=== PATIENT | female | born 1955 | race Caucasian/White ===

== ENCOUNTER 2017-02-09 09:34 | Emergency (ER) | payer BC ==
[2017-02-09 09:49] VITALS: TEMP 36.7; Ht 154.9 cm
[2017-02-09] MEDS ORDERED: ASPIRIN 324 MG CHEW PO STA (10:04)
--- NOTE | 2017-02-09 10:19 | EMERGENCY ROOM VISIT NOTE ---
History Report prepared by Hilary: Elvis Reyez Under the Supervision of: Dr. Marky Licea M.D. First contact with patient: 09:55 Chief Complaint: CHEST PAIN Stated Complaint: CHEST PAIN History of Present Illness The patient is a 61 year old female who presents to the Emergency Room with complaints of intermittent chest pain that started a few days ago. She says she currently has a bit of pain. The patient says nothing makes the pain better or worse. When the pain gets really bad, she gets short of breath. She currently does not feel short of breath. Per the patient's daughter, when the patient's pain first hit, the patient had trouble with her vision. The patient says that she had left arm pain a few nights ago, but she thinks it was from lying down wrong. Her chest pain does wake up her in the middle of the night. She denies any bowel or bladder issues, headaches, weakness, or loss of consciousness. She has been taking Tums and Aspirin for her chest pain. The patient has not had any recent travels. She is not on any medications, and her only chronic issue is hyperlipidemia. She has a history of blood clots in her legs as a teenager. She has never had a stress test. The patient has a family history of heart disease. She has a personal history of scarlet fever. The patient is a smoker, but is trying to quit currently. Source of History: patient, family Onset: A few days ago Position: chest (pain) Symptom Intensity: wakes her up at night Timing: intermittent Associated Symptoms: + SOB, No LOC, No headache, No urinary symptoms, No weakness Note: Associated symptoms: One episode of left arm pain. Denies bowel issues. Review of Systems See HPI for pertinent positives & negatives. A total of 10 systems reviewed and were otherwise negative. Past Medical & Surgical Medical Problems: (1) Blood clot leg (2) Hyperlipemia (3) Scarlet fever Surgical Problems: (1) H/O ankle fusion Family History FHx: heart disease Social History Smoking Status: Current Every Day Smoker Marital Status: Housing Status: lives with family Occupation Status: employed Current/Historical Medications Scheduled Omeprazole (Omeprazole), 1 TAB PO DIRECTED Allergies Coded Allergies: ALLERGY2 (Verified Allergy, Unknown, 11/29/03) Penicillins (Unverified Allergy, Unknown, UNKNOWN, 02/09/17) Uncoded Allergies: "JONAS" (Allergy, Mild, TOGUE SWELLING, 03/07/06) Physical Exam Vital Signs Date Time Temp Pulse Resp B/P Pulse Ox O2 Delivery O2 Flow Rate FiO2 02/09/17 15:41 64 18 99/57 98 02/09/17 13:19 70 18 91/65 98 Room Air 02/09/17 12:45 72 02/09/17 12:04 70 18 106/73 98 Room Air 02/09/17 11:18 77 18 96/63 98 Room Air 02/09/17 10:35 79 18 96/71 96 Room Air 02/09/17 10:27 90 112/60 95 Room Air 02/09/17 10:25 95 Room Air 02/09/17 09:49 36.7 86 20 121/76 100 Room Air Physical Exam GENERAL: Patient is happy, smiling, and in minimal distress. HEENT: No acute trauma, normocephalic atraumatic, mucous membranes moist, no nasal congestion, no scleral icterus. NECK: No stridor, no adenopathy, no meningismus, trachea is midline. LUNGS: No dyspnea. Clear to auscultation and equal bilaterally. No wheeze, no rhonchi. HEART: Regular rate and rhythm. No murmurs, rubs, gallops appreciated. ABDOMEN: Soft, nontender, bowel sounds positive, no masses appreciated, no peritonitis. BACK: No midline tenderness, no CVA tenderness EXTREMITIES: Normal motion all extremities, no cyanosis, no edema. NEUROLOGIC: Alert and oriented, no acute motor or sensory deficits, no focal weakness, cranial nerves grossly intact. SKIN: No rash, no jaundice, no diaphoresis. Medical Decision & Procedures ER Provider Diagnostic Interpretation: X ray results are stated below per my interpretation and the radiologist's interpretation. CHEST ONE VIEW PORTABLE CLINICAL HISTORY: Chest Pain dyspnea COMPARISON STUDY: 03/07/2006 FINDINGS: The bones soft tissues and hemidiaphragms are normal. The cardiomediastinal silhouette is normal. The lungs are clear. The pulmonary vasculature is normal. IMPRESSION: Negative chest. Electronically signed by: Nader Segal M.D. 02/09/2017 10:26 AM Dictated Date/Time: 02/09/2017 10:26 AM Laboratory Results 02/09/17 10:10 Red Blood Count 5.15, Mean Corpuscular Volume 89.1, Mean Corpuscular Hemoglobin 29.9, Mean Corpuscular Hemoglobin Concent 33.6, Mean Platelet Volume 8.9, Neutrophils (%) (Auto) 54.9, Lymphocytes (%) (Auto) 35.4, Monocytes (%) (Auto) 7.4, Eosinophils (%) (Auto) 1.7, Basophils (%) (Auto) 0.4, Neutrophils # (Auto) 5.14, Lymphocytes # (Auto) 3.31, Monocytes # (Auto) 0.69, Eosinophils # (Auto) 0.16, Basophils # (Auto) 0.04 02/09/17 10:10 Test 02/09/17 10:10 02/09/17 13:00 White Blood Count 9.36 K/uL (4.8-10.8) Red Blood Count 5.15 M/uL (4.2-5.4) Hemoglobin 15.4 g/dL (12.0-16.0) Hematocrit 45.9 % (37-47) Mean Corpuscular Volume 89.1 fL (80-100) Mean Corpuscular Hemoglobin 29.9 pg (25-34) Mean Corpuscular Hemoglobin Concent 33.6 g/dl (32-36) Platelet Count 399 K/uL (130-400) Mean Platelet Volume 8.9 fL (7.4-10.4) Neutrophils (%) (Auto) 54.9 % Lymphocytes (%) (Auto) 35.4 % Monocytes (%) (Auto) 7.4 % Eosinophils (%) (Auto) 1.7 % Basophils (%) (Auto) 0.4 % Neutrophils # (Auto) 5.14 K/uL (1.4-6.5) Lymphocytes # (Auto) 3.31 K/uL (1.2-3.4) Monocytes # (Auto) 0.69 K/uL (0.11-0.59) Eosinophils # (Auto) 0.16 K/uL (0-0.5) Basophils # (Auto) 0.04 K/uL (0-0.2) RDW Standard Deviation 45.3 fL (36.4-46.3) RDW Coefficient of Variation 13.8 % (11.5-14.5) Immature Granulocyte % (Auto) 0.2 % Immature Granulocyte # (Auto) 0.02 K/uL (0.00-0.02) D-Dimer 360 ug/L FEU (0-500) Anion Gap 8.0 mmol/L (3-11) Estimated GFR () 69.4 Estimated GFR (Non- 59.9 BUN/Creatinine Ratio 17.2 (10-20) Calcium Level 9.4 mg/dl (8.5-10.1) Total Creatine Kinase 77 U/L (26-192) Creatine Kinase MB 0.5 ng/ml (0.5-3.6) Creatine Kinase MB Ratio 0.6 (0-3.0) Troponin I 0.028 ng/ml (0-0.045) Laboratory results as reviewed by me. Medications Administered Medications (Trade) Dose Ordered Sig/Abi Route Start Time Stop Time Status Last Admin Dose Admin Aspirin (Aspirin Chew) 324 mg NOW STAT PO 02/09/17 10:04 02/09/17 10:05 DC 02/09/17 10:22 324 MG Nitroglycerin (Nitrostat Tab) 0.4 mg Q5M PRN SL 02/09/17 10:15 02/09/17 15:59 DC 02/09/17 10:29 0.4 MG Perflutren Lipid Microsphere (Definity) 2 ml ONE ONCE IV 02/09/17 15:05 02/09/17 15:06 DC 02/09/17 15:06 2 ML ECG Indication: chest pain Rate (beats per minute): 77 Rhythm: normal sinus Findings: no ectopy, other (nonspecific ST abnormalities anteriorly without STEMI) ED Course 0955: The patient was evaluated in room B7. A complete history and physical exam was performed. 1004: Ordered Aspirin Chew 324 mg PO. 1015: Ordered Nitrostat Tab 0.4 mg SL PRN. 1045: I reevaluated the patient and he notes that her symptoms are still there but she became hypotensive with the second sublingual nitro, so we will hold off on further nitro. The patient says her symptoms are mild currently. 1137: I reevaluated the patient and she has no further chest pain. 1143: I discussed the patient with Dr. Koch - [facility] [place] - he asked that we do a trop at 1300 and if negative, the patient will get a stress test done. 1205: I reevaluated the patient, and she is feeling good and in no distress. She agrees with the plan. 1410: I reevaluated the patient and she is at cardiopulmonary lab. 1505: Ordered Definity 2 ml IV. 1519: I discussed the patient with Dr. August SAUER cardiology - he says that the cath is essentially normal, and it safe for the patient to go home. 1520: Reevaluated the patient and she will follow up with her coin teller. She agrees to starting anti-acids. Discussed results and discharge instructions: She verbalized understanding and agreement. The patient is ready for discharge. Medical Decision Differential: Cardiac Ischemia (STEMI, NSTEMI, Unstable Angina, etc), Aortic Dissection, Arrhythmia, Pulmonary Embolism, Pneumonia, Pneumothorax, MSK, Infectious, Pericarditis/Myocarditis, Esophageal Rupture, Gastrointestinal, amongst other pathologies entertained. 61 yr old female arrives with complaint of chest pressure. She has risk factors of age, smoking and brother with AK in past. She does not see physician regularly so unclear if DLP or HTN. Atypical symptoms with symptoms this morning though more severe symptoms were in episodes a few days ago. Trop wnl x 2, EKG without acute ischemia. Stress testing done without any inducible ischemia. Discussed with cards and outpatient follow up planned. Will do Prilosec as outpatient. Discussed symptoms requiring RTED. Dimer negative thus I feel not PE. No evidence dissection. Consults Time Called: 1140 Consulting Physician: Dr. August SAUER cardiology Returned Call: 1146 I discussed the patient with Dr. August SAUER cardiology - he asked that we do a trop at 1300 and if negative, he will get a stress test done. Additional Consults: Time Called: -- Consulted Physician: Dr. August SAUER cardiology Returned Call: [phone] Additional Comments: I discussed the patient with Dr. August SAUER cardiology - he says that the cath is essentially normal, and it safe for the patient to go home. Impression Primary Impression: Substernal precordial chest pain Scribe Attestation The scribe's documentation has been prepared under my direction and personally reviewed by me in its entirety. I confirm that the note above accurately reflects all work, treatment, procedures, and medical decision making performed by me. Departure Information Dispostion Home / Self-Care Prescriptions Omeprazole (OMEPRAZOLE) 20 Mg Tab 1 TAB PO DIRECTED, #45 TAB 3 Refills Take one tab twice daily for a week and then once daily. Prov: Marky Licea M.D. 02/09/17 Referrals Stanton Narayan M.D. (PCP) Tray Galvez M.D. Patient Instructions ED Chest Pain Atypical Unkn Cause, My [facility] Additional Instructions Please follow up with one of the Product Development Ecologist in the next few weeks for repeat evaluation.
[2017-02-09] MEDS: NITROGLYCERIN 0.4 MG SL PER TAB CHARGE SL PRN ×2 (10:23→10:29)
--- NOTE | 2017-02-09 10:28 | DIAGNOSTIC IMAGING REPORT ---
CHEST ONE VIEW PORTABLE CLINICAL HISTORY: Chest Pain dyspnea COMPARISON STUDY: 03/07/2006 FINDINGS: The bones soft tissues and hemidiaphragms are normal. The cardiomediastinal silhouette is normal. The lungs are clear. The pulmonary vasculature is normal. IMPRESSION: Negative chest. Electronically signed by: Nader Segal M.D. 02/09/2017 10:26 AM Dictated Date/Time: 02/09/2017 10:26 AM
[2017-02-09 10:30] LABS: BASO % 0.4 %; BASO ABS # 0.04 K/uL (0-0.2); COMPLETE YES; EOS % 1.7 %; HEMATOCRIT 45.9 % (37-47); IG% 0.2 %; LYMPH % 35.4 %; LYMPH ABS # 3.31 K/uL (1.2-3.4); MEAN CELL VOLUME 89.1 fL (80-100); MEAN CORPUSCULAR HEMOGLOBIN 29.9 pg (25-34); MEAN CORPUSCULAR HGB CONC 33.6 g/dl (32-36); MEAN PLATELET VOLUME 8.9 fL (7.4-10.4); MONO % 7.4 %; NEUT % 54.9 %; PLATELET COUNT 399 K/uL (130-400); RED BLOOD COUNT 5.15 M/uL (4.2-5.4); WHITE BLOOD COUNT 9.36 K/uL (4.8-10.8)
[2017-02-09 10:53] LABS: BLOOD UREA NITROGEN 17 mg/dl (7-18); BUN/CREATININE RATIO 17.2 (10-20); CALCIUM 9.4 mg/dl (8.5-10.1); CARBON DIOXIDE 26 mmol/L (21-32); CHLORIDE 107 mmol/L (98-107); GLUCOSE 92 mg/dl (70-99); POTASSIUM 3.9 mmol/L (3.5-5.1); SODIUM 141 mmol/L (136-145)
[2017-02-09 10:58] LABS: CKMB/CK RATIO 0.6 (0-3.0)
[2017-02-09] MEDS ORDERED: DOBUTamine HCL 12.5 MG/ML 20 ML VIAL ONE (14:07)
[2017-02-09] MEDS ORDERED: METOPROLOL TARTRATE 1 MG/ML VIAL ONE (14:07)
[2017-02-09] MEDS ORDERED: ATROPINE SULFATE 0.1 MG/ML 5ML SYR ONE (14:07)
[2017-02-09] MEDS ORDERED: PERFLUTREN LIPID MICROSPHERE (DEFINITY) IV ONE (15:05)
[2017-02-09] MEDS ORDERED: OMEP20TA PO (15:30)
[2017-02-09 15:41] VITALS: BP 99/57; PULSE 64; O2SAT 98
--- NOTE | 2017-02-09 16:25 | DOBUTAMINE ECHO ---
*NOTICE TO RECEIVING [employer] This information is strictly Confidential and protected under [place] law. [place] law prohibits you from making any further disclosure of this information unless further disclosure is expressly permitted by the written consent of the person to whom it pertains or is authorized by law. A general authorization for the release of medical or other information is not sufficient for this purpose. Hospital accepts no responsibility if the information is made available to any other person, INCLUDING THE PATIENT. Interpretation Summary * Name: CASSIE THOMAS Study Date: 02/09/2017 01:43 PM BP: 109/61 mmHg * Patient Location: ED HR: 70 * : 1955 (M/d/yyyy) Gender: Female Height: 61 in * Age: 61 yrs Ethnicity: [place] Weight: 133 lb * Ordering Physician: Marky Licea * Referring Physician: Self, Referred * Performed By: Sonu Delgado RCS * * Reason For Study: Chest Pain * BSA: 1.6 m2 * -- Conclusions -- * Stress Echo: * 1. No inducible ischemic changes visualized on Dobutamine stress echo images at 94% MPHR. * 2. Abnormal dobutamine ECG with 1 mm horizontal/downsloping ST depression occurring 10 minutes into recovery. * 3. No arrhythmia. * 4. No chest pain reported with dobutamine infusion. There was reproducible chest discomfort induced with palpation/echo probe. * 5. Technically difficult study, enhanced with IV Definity. * 6. Poor to fair image quality. Suggest other imaging modalities for ischemic evaluation in the future, if appropriate. * Echo: * 1. Normal left ventricular size and systolic function. EF 55-60%. No regional wall motion abnormalities. No left ventricular hypertrophy. No significant diastolic dysfunction. * 2. Sclerotic aortic valve without significant stenosis. * 3. Technically difficult study. Procedure Details * DOBUTAMINE ECHO, CPT#99570 * ECHO COLOR FLOW, CPT #[id number] * ECHO DOPPLER, CPT #[id number] * A contrast injection of Definity was performed to improve assessment of LV function. * Contrast was injected into an intravenous site in the right arm. * One vial of Definity ultrasound contrast was diluted in normal saline to a total volume of 10 ml. A total of '8' ml of solution was administered during imaging. * Lot # [id number] of Definity utilized for procedure. * Expiration date . * The attending nurse who injected the contrast agent was YANDY Hurst. Left Ventricle * The left ventricle is normal in size. * There is normal left ventricular wall thickness. * Ejection Fraction = 55-60%. * Left ventricular systolic function is normal. * Resting wall motion: Normal. Stress wall motion: Appropriate increase in Left ventricular systolic function and decrease in cavity size. No stress induced segmental wall motion abnormalities. * The left ventricular ejection fraction increases normally with stress. The left ventricular end-systolic cavity size reduces post-stress (normal response). The left ventricular wall motion with stress is normal. Right Ventricle * The right ventricle is normal in size and function. * The right ventricular systolic function is normal as assessed by tricuspid annular plane systolic excursion (TAPSE) (normal >1.5 cm). Atria * The left atrial size is normal. * Right atrial size is normal. Mitral Valve * The mitral valve is grossly normal. * There is no mitral valve stenosis. * There is trace mitral regurgitation. Tricuspid Valve * The tricuspid valve is not well visualized, but is grossly normal. * There is no tricuspid stenosis. * Significant tricuspid regurgitation is absent. Aortic Valve * The aortic valve is trileaflet. * Aortic valve sclerosis mild, without significant aortic valvular stenosis. * No hemodynamically significant valvular aortic stenosis. * No aortic regurgitation is present. Pulmonic Valve * The pulmonary valve is inadequately visualized, but the Doppler data is adequate for interpretation. * Mild pulmonic valvular regurgitation. Great Vessels * The aortic root is normal size. * Ascending aorta of normal dimension * Normal pulmonary venous flow pattern. Pericardium * There is no pericardial effusion. Stress Parameters * NSR at 70 bpm. * 1 mm horizontal/downsloping ST depression in leads II, III, aVF, that occurred 10 minutes into recovery and returned to baseline by 15 minutes into recovery. * The stress portion of this study was personally supervised by the undersigned interpreting physician. * Rest heart rate was '70' BPM. * Rest blood pressure was '109/61' * Maximum heart rate achieved was 148 bpm. * Maximum heart rate was 94 % of maximum age-predicted heart rate. * Maximum blood pressure was '144/90' * Maximum Dobutamine infusion rate was '40' mcg/kg/min. * Dobutamine infusion was terminated due to achieving target heart rate * A total of 10 mg of IV Metoprolol was administered to reverse Dobutamine-induced tachycardia. MMode 2D Measurements and Calculations IVSd 0.95 cm IVSs 1.4 cm LVIDd 4.6 cm LVIDs 3.3 cm LVPWd 0.92 cm LVPWs 1.4 cm IVS/LVPW 1.0 FS 28.9 % EDV(Teich) 98.1 ml ESV(Teich) 43.5 ml EF(Teich) 55.7 % EDV(cubed) 98.3 ml ESV(cubed) 35.3 ml EF(cubed) 64.1 % % IVS thick 42.1 % % LVPW thick 47.1 % LV mass(C)d 145.8 grams LV mass(C)dI 91.8 grams/m\S\2 LV mass(C)s 149.5 grams LV mass(C)sI 94.1 grams/m\S\2 CO(Teich) 4.0 l/min CI(Teich) 2.5 l/min/m\S\2 SV(Teich) 54.6 ml SI(Teich) 34.4 ml/m\S\2 CO(cubed) 4.6 l/min CI(cubed) 2.9 l/min/m\S\2 SV(cubed) 63.0 ml SI(cubed) 39.7 ml/m\S\2 Ao root diam 3.2 cm Ao root area 8.2 cm\S\2 ACS 1.6 cm LA dimension 3.2 cm asc Aorta Diam 2.4 cm LA/Ao 1.0 LVAd ap4 24.7 cm\S\2 LVLd ap4 7.9 cm EDV(MOD-sp4) 65.0 ml LVAs ap4 13.0 cm\S\2 LVLs ap4 5.6 cm ESV(MOD-sp4) 26.0 ml EF(MOD-sp4) 60.0 % LVAd ap2 23.3 cm\S\2 LVLd ap2 7.2 cm EDV(MOD-sp2) 63.0 ml LVAs ap2 12.1 cm\S\2 LVLs ap2 5.3 cm ESV(MOD-sp2) 25.0 ml EF(MOD-sp2) 60.3 % CO(MOD-sp4) 2.8 l/min CI(MOD-sp4) 1.8 l/min/m\S\2 SV(MOD-sp4) 39.0 ml SI(MOD-sp4) 24.6 ml/m\S\2 CO(MOD-sp2) 2.8 l/min CI(MOD-sp2) 1.7 l/min/m\S\2 SV(MOD-sp2) 38.0 ml SI(MOD-sp2) 23.9 ml/m\S\2 Doppler Measurements and Calculations MV E max rigo 76.0 cm/sec MV A max rigo 64.4 cm/sec MV E/A 1.2 MV P1/2t max rigo 93.6 cm/sec MV P1/2t 69.5 msec MVA(P1/2t) 3.2 cm\S\2 MV dec slope 394.5 cm/sec\S\2 MV dec time 0.24 sec Ao V2 max 106.3 cm/sec Ao max PG 4.5 mmHg Ao max PG (full) 1.8 mmHg LV V1 max PG 2.7 mmHg LV V1 max 81.9 cm/sec TV E max rigo 48.0 cm/sec PA V2 max 87.5 cm/sec PA max PG 3.1 mmHg PI max rigo 160.1 cm/sec PI max PG 10.3 mmHg PI dec slope 124.8 cm/sec\S\2 PI P1/2t 375.7 msec
[2017-02-16] MEDS ORDERED: ASPEC81 PO (11:27)
== END 2017-02-09 15:44 | disposition home or self-care (01) ==
LOC: C.EDB 09:36
DX: R07.2 Precordial pain (principal); Z86.718 Personal history of other venous thrombosis and embolism; E78.5 Hyperlipidemia, unspecified; Z86.19 Personal history of other infectious and parasitic diseases; Z82.49 Family history of ischemic heart disease and other diseases of the circulatory system; F17.210 Nicotine dependence, cigarettes, uncomplicated

== ENCOUNTER 2017-02-13 23:39 | Inpatient (IN) | payer BC ==
[~2017-02-13] VITALS: Ht 154.9 cm; Wt 64.5 kg
[~2017-02-13 23:39] MED LIST: OMEP20TA PO
[2017-02-14] VITALS (9 sets, daily range): BP systolic 90–125; BP diastolic 49–86; PULSE 68–90; TEMP 36.4–37; O2SAT 97–99; Ht 154.9 cm; Wt 64.5 kg
--- NOTE | 2017-02-14 00:07 | EMERGENCY ROOM VISIT NOTE ---
History Report prepared by Hilary: Elizabeth Garvey Under the Supervision of: Dr. Shayla Ruano D.O. First contact with patient: 23:42 Chief Complaint: CHEST PAIN Stated Complaint: CHEST PAIN History of Present Illness The patient is a 61 year old female who presents to the Emergency Room with complaints of constant chest pain beginning 1 hour ago. The patient states that she was laying in bed watching TV when her chest started to hurt and she began having left arm pain. She notes that she took 2 Aspirin before she came in tonight. The patient reports that 4 days ago she was seen here for similar pain with diaphoresis and was given 2 nitroglycerin that lowered her blood pressure and her pain and was told to follow up with a technical document writer for further testing. She states that she is a smoker, her brother had a heart attack in his late 50's , and she has high cholesterol. Today the patient complains of jaw pain, nausea that is now resolved, shortness of breath, and arm pain. The jaw pain and arm pain are new for her. She denies any abdominal pain, leg cramping, leg swelling , and diaphoresis. She notes that she was put on Prilosec after her last visit. Source of History: patient Onset: 1 hour ago Position: chest Timing: constant Associated Symptoms: + SOB, + nausea, No abdominal pain, No diaphoresis Note: Today the patient complains of jaw pain and arm pain. She denies any leg cramping and leg swelling. Review of Systems See HPI for pertinent positives & negatives. A total of 10 systems reviewed and were otherwise negative. Past Medical & Surgical Medical Problems: (1) Blood clot leg (2) Chest pain radiating to arm (3) Hyperlipemia (4) Scarlet fever (5) Unstable angina Surgical Problems: (1) H/O ankle fusion Family History FHx: heart disease Social History Smoking Status: Current Every Day Smoker Marital Status: Housing Status: lives with family Occupation Status: employed Current/Historical Medications Scheduled Omeprazole (Omeprazole), 1 TAB PO DIRECTED Allergies Coded Allergies: Anesthetics, Amide (Verified Allergy, Unknown, "JONAS" TONGUE SWELLS, ) MORE COMMONLY USED THAN ESTERS Anesthetics, Giuliana (Verified Allergy, Unknown, "JONAS" TONGUE SWELLING, ) Penicillins (Verified Allergy, Unknown, UNKNOWN, 02/14/17) Physical Exam Vital Signs Date Time Temp Pulse Resp B/P Pulse Ox O2 Delivery O2 Flow Rate FiO2 02/14/17 01:40 124/79 02/14/17 01:35 87 18 122/85 97 02/14/17 01:30 88 20 112/86 97 Room Air 02/14/17 01:25 124/80 02/14/17 01:24 83 21 97 02/14/17 01:20 125/80 02/14/17 01:16 102/72 02/14/17 01:10 122/75 02/14/17 01:09 100 17 98 02/14/17 01:05 111/62 02/14/17 01:00 97/74 02/14/17 00:55 95/65 02/14/17 00:54 97 21 95 02/14/17 00:49 103 21 93/61 96 02/14/17 00:44 106 16 96 Room Air 02/14/17 00:39 93 18 126/83 98 Room Air 02/14/17 00:34 92 18 99 02/14/17 00:29 93 22 97 Room Air 02/14/17 00:24 99 18 103/72 95 02/14/17 00:19 95 25 96 02/14/17 00:14 95 27 103/74 94 Room Air 02/14/17 00:09 94 18 97 02/14/17 00:06 113/76 02/14/17 00:04 100 Room Air 02/14/17 00:04 92 23 99 02/14/17 00:00 150/83 02/13/17 23:59 91 22 100 02/13/17 23:54 93 20 100 02/13/17 23:51 100 Room Air 02/13/17 23:50 93 02/13/17 23:49 37.6 100 18 156/98 100 Room Air 02/13/17 23:49 91 21 97 02/13/17 23:46 156/98 Physical Exam HEENT: Head - normocephalic and atraumatic Pupils are equal, round, and reactive to light. Extraocular eye muscles are intact, and sclera are anicteric. Nose - moist nasal mucosa without discharge. Mouth - moist buccal mucosa. Oropharynx is nonerythematous and there is no tonsillar exudate or edema noted. Neck: Supple; no JVD, nuchal rigidity, cervical lymphadenopathy, or auscultated bruits. Heart: Regular rate and rhythm. There is a normal S1 and S2 with no murmurs, clicks, or gallops appreciated. Lungs: Clear to auscultation bilaterally with no wheezes, rales, or rhonchi. Abdomen: Soft, completely nontender, nondistended, with good bowel sounds. There are no palpable pulsatile masses or hepatosplenomegaly. There is no guarding, rigidity, or rebound noted. Extremities: No evidence of cyanosis, clubbing, or edema. There are easily palpable peripheral pulses. Skin: warm and dry with good turgor and no rashes. Medical Decision & Procedures ER Provider Diagnostic Interpretation: Radiology results as stated below per my review and the radiologist's interpretation: Chest X-Ray: No cardiomegaly. No obviously pulmonary infiltrate questionable granulomatous changes vs pyelolymphadenopathy. CTA CHEST: Motion degraded. No aortic aneurysm. No evidence of aortic dissection within the limitations of the study. No evidence of large central pulmonary embolism. No pleural effusion. Mild atelectasis. Laboratory Results 02/13/17 23:49 Test 02/13/17 23:49 Anion Gap 7.0 mmol/L (3-11) Est Creatinine Clear Calc Drug Dose 44.7 ml/min Estimated GFR () 61.9 Estimated GFR (Non- 53.4 BUN/Creatinine Ratio 19.7 (10-20) Calcium Level 9.0 mg/dl (8.5-10.1) Total Bilirubin 0.2 mg/dl (0.2-1) Direct Bilirubin < 0.1 mg/dl (0-0.2) Aspartate Amino Transf (AST/SGOT) 18 U/L (15-37) Alanine Aminotransferase (ALT/SGPT) 33 U/L (12-78) Alkaline Phosphatase 107 U/L (45-117) Pro-B-Type Natriuretic Peptide 127 pg/ml (0-900) Total Protein 7.9 gm/dl (6.4-8.2) Albumin 3.8 gm/dl (3.4-5.0) Lipase 307 U/L (73-393) Laboratory results per my review. Medications Administered Medications (Trade) Dose Ordered Sig/Abi Route Start Time Stop Time Status Last Admin Dose Admin Nitroglycerin (Nitrostat Tab) 0.4 mg STK-MED ONCE .ROUTE 02/14/17 00:08 02/14/17 00:09 DC 02/14/17 00:03 0.4 MG Procedure 0008: Nitroglycerin 0.4mg PO. ECG Indication: chest pain Rate (beats per minute): 92 Rhythm: normal sinus Findings: ST depression (V5, V6) Comparison ECG Date: 02/09/2017 Change: EKG #2: 110 Sinus Tachycardia, no ischemia, no ectopy. ED Course 2342: Past medical records reviewed. The patient was evaluated in room B8. A complete history and physical exam was performed. A twelve-lead EKG was obtained. An IV lock was initiated and labs were drawn as above. The patient had a portable chest x-ray. She is declining anything more for pain as she is quite sensitive to pain medications. 0008: Nitroglycerin 0.4mg PO. 0023: I reevaluated the patient. The nitroglycerin took the pain out of her neck , shoulder, and chest. She still has the pain in her forearm after 2 nitroglycerin. 0042: The patient is having more chest pain and got the third nitroglycerin. A repeat EKG was done at this time. 0121: I reevaluated the patient. Her pain is severe and she doesn't want anything for pain. I considered the possibility of aortic dissection and the patient went for CT scan of the chest. This was unremarkable. 0141: Discussed the patient's case with the [facility] hospitalist. The patient will be evaluated for further management. 0147: Upon reevaluation, I discussed findings and results with the patient. She verbalized agreement of the treatment plan. I spoke with Dr. Goddard of the [facility] Hospitalist Service. The patient will be evaluated for further management and care. Medical Decision The patient is a 61 year old female who presents to the ED with chest pain. Differential diagnosis includes STEMI, cardiac ischemia, pleurisy, GERD, aortic dissection. LABS: Normal White Count Stable H&H BUN 22 Creatinine 1.1 Glucose 156 Normal LFTs Negative Cardiac Enzymes BNP 127 Lipase 207 Normal Coags This is a 61-year-old female patient with a recent history of intermittent episodes of chest discomfort for which she has been evaluated here at the hospital and by cardiology. Tonight, the patient developed severe left-sided chest pain that seemed to extend up into the left side of her jaw, left shoulder , left arm and left forearm. I remain concerned about the possibility of coronary artery disease as the patient has risk factors including smoking, hypercholesterolemia, and a strong family history of heart disease. The patient has undergone a dobutamine stress echo recently which was negative according to the family. I've discussed the case with the [facility]ist and they will evaluate for further management. Consults Time Called: 101 Consulting Physician: Dr. Goddard Returned Call: [phone] Discussed the patient's case. The patient will be evaluated for further management. Impression Primary Impression: Left sided chest pain Scribe Attestation The scribe's documentation has been prepared under my direction and personally reviewed by me in its entirety. I confirm that the note above accurately reflects all work, treatment, procedures, and medical decision making performed by me. Departure Information Dispostion Being Evaluated By Hospitalist Referrals Stanton Narayan M.D. (PCP) Patient Instructions My [facility]
[2017-02-14] MEDS ORDERED: NITROGLYCERIN 0.4 MG SL PER TAB CHARGE ONE (00:08)
[2017-02-14 00:10] LABS: HEMATOCRIT 43.9 % (37-47); MEAN CELL VOLUME 89.2 fL (80-100); MEAN CORPUSCULAR HEMOGLOBIN 29.7 pg (25-34); MEAN CORPUSCULAR HGB CONC 33.3 g/dl (32-36); MEAN PLATELET VOLUME 9.1 fL (7.4-10.4); PLATELET COUNT 387 K/uL (130-400); RED BLOOD COUNT 4.92 M/uL (4.2-5.4); WHITE BLOOD COUNT 9.98 K/uL (4.8-10.8)
[2017-02-14 00:30] LABS: ALT/SGPT 33 U/L (12-78); AST/SGOT 18 U/L (15-37); BLOOD UREA NITROGEN 22 mg/dl (7-18); BUN/CREATININE RATIO 19.7 (10-20); CARBON DIOXIDE 27 mmol/L (21-32); CHLORIDE 110 mmol/L (98-107); GLUCOSE 156 mg/dl (70-99); POTASSIUM 3.5 mmol/L (3.5-5.1); SODIUM 144 mmol/L (136-145)
[2017-02-14 00:32] LABS: INR 0.9 (0.9-1.1); PROTHROMBIN TIME (PATIENT) 9.7 SECONDS (9.0-12.0)
[2017-02-14 00:35] LABS: ALKALINE PHOSPHATASE 107 U/L (45-117); CKMB/CK RATIO 1.1 (0-3.0)
[2017-02-14] MEDS ORDERED: ZOLPIDEM TARTRATE 5 MG TAB PO PRN (01:45)
[2017-02-14] MEDS ORDERED: ACETAMINOPHEN 325 MG TAB PO PRN (01:45)
[2017-02-14] MEDS ORDERED: NITROGLYCERIN 0.4 MG SL PER TAB CHARGE SL PRN (01:45)
[2017-02-14] MEDS ORDERED: OPTIRAY 320 IV PRN (01:45)
[2017-02-14] MEDS ORDERED: LEVALBUTEROL/IPRATROPIUM NEB INH PRN (02:00)
[2017-02-14] MEDS ORDERED: MoRPHine SULFATE 4 MG/ML 1 ML CARP\\VIAL IV PRN (02:00)
[2017-02-14] MEDS ORDERED: LEVALBUTEROL 1.25MG/0.5ML NEB INH PRN (02:00)
[2017-02-14] MEDS ORDERED: MoRPHine SULFATE 2 MG/ML CARP IV PRN (02:00)
[2017-02-14] MEDS ORDERED: ONDANSETRON INJ 2 MG/ML 2 ML VIAL IV PRN (02:00)
[2017-02-14] MEDS ORDERED: IPRATROPIUM BROMIDE NEB SOLN 0.02% 2.5 ML VIAL INH PRN (02:00)
[2017-02-14] MEDS ORDERED: ACETAMINOPHEN IV 100 ML IV PRN (02:00)
[2017-02-14] MEDS ORDERED: NITROGLYCERIN OINT 2% 1GM PACKET ONE (02:03)
[2017-02-14 02:40] LABS: CKMB/CK RATIO 1.2 (0-3.0)
[2017-02-14] MEDS: NSS + 20MEQ KCL 1000ML 1,000 ML IV SCH ×2 (03:46→14:20)
--- NOTE | 2017-02-14 05:25 | History and Physical ---
History & Physical Date & Time of Service: Feb 14, 2017 at 05:14 Chief Complaint: Chest Pain Radiating To Arm, Unstable Angina Primary Care Physician: Stanton Narayan M.D. History of Present Illness Source: patient, family, spouse The patient is a 61-year-old female who developed precordial chest pain, left arm and jaw pain 1 hour prior to arrival while she is lying in bed watching TV. She took 2 aspirin, and then came to emergency department for assessment. She had been to the emergency department 4 days ago for chest pain at that time , but the left arm and jaw pain is something new to this event today. She reports having attacks of chest discomfort almost daily for the past 2-3 weeks. She cannot associate any change in activity or any other causal relationship. Her risk factors include that of being a smoker, has hypercholesterolemia, and a brother who had a heart attack in his late 50s. Past Medical/Surgical History Medical Problems: (1) Blood clot leg Status: Resolved (2) Hyperlipemia Status: Chronic (3) Scarlet fever Status: Resolved Surgical Problems: (1) H/O ankle fusion Status: Resolved Family History FHx: heart disease Social History Smoking Status: Current Every Day Smoker Smokeless Tobacco Use: No Alcohol Use: none Drug Use: none Marital Status: Housing status: lives with family Occupational Status: employed Multi-Drug Resistant Organisms History of MDRO: No Allergies Coded Allergies: ALLERGY2 (Verified Allergy, Unknown, 11/29/03) Penicillins (Unverified Allergy, Unknown, UNKNOWN, 02/14/17) Uncoded Allergies: "JONAS" (Allergy, Mild, TOGUE SWELLING, 03/07/06) Home Medications Scheduled Omeprazole (Omeprazole), 1 TAB PO DIRECTED Review of Systems The patient denies palpitations, lower extremity swelling, vision change, hearing change, sore throat, fevers, chills, sweats, weight change, fatigue, nausea, vomiting, abdominal pain, pelvic pain, blood in urine or stool, dysuria , urinary frequency or urgency, lightheadedness, dizziness, headache, memory loss, rash, abnormal bruising or bleeding, imbalance, focal or generalized weakness, numbness or tingling in legs, arthralgias or myalgias, back or neck pain, night sweats, or allergy symptoms. The review of systems is otherwise negative other than for that already noted above, and at least 10 systems have been reviewed. Physical Exam Vital Signs Date Time Temp Pulse Resp B/P Pulse Ox O2 Delivery O2 Flow Rate FiO2 02/14/17 04:00 Room Air 02/14/17 03:09 36.4 70 123/78 99 Room Air 02/14/17 02:33 79 18 136/96 98 02/14/17 02:10 78 18 136/74 98 Room Air 02/14/17 02:09 132/81 02/14/17 02:05 94 02/14/17 02:00 118/84 02/14/17 01:40 124/79 02/14/17 01:35 87 18 122/85 97 02/14/17 01:30 88 20 112/86 97 Room Air 02/14/17 01:25 124/80 02/14/17 01:24 83 21 97 02/14/17 01:20 125/80 02/14/17 01:16 102/72 02/14/17 01:10 122/75 02/14/17 01:09 100 17 98 02/14/17 01:05 111/62 02/14/17 01:00 97/74 02/14/17 00:55 95/65 02/14/17 00:54 97 21 95 02/14/17 00:49 103 21 93/61 96 02/14/17 00:44 106 16 96 Room Air 02/14/17 00:39 93 18 126/83 98 Room Air 02/14/17 00:34 92 18 99 02/14/17 00:29 93 22 97 Room Air 02/14/17 00:24 99 18 103/72 95 02/14/17 00:19 95 25 96 02/14/17 00:14 95 27 103/74 94 Room Air 02/14/17 00:09 94 18 97 02/14/17 00:06 113/76 02/14/17 00:04 100 Room Air 02/14/17 00:04 92 23 99 02/14/17 00:00 150/83 02/13/17 23:59 91 22 100 02/13/17 23:54 93 20 100 02/13/17 23:51 100 Room Air 02/13/17 23:50 93 02/13/17 23:49 37.6 100 18 156/98 100 Room Air 02/13/17 23:49 91 21 97 02/13/17 23:46 156/98 The patient is awake, well-developed and adequately nourished, alert and oriented 3, normocephalic and atraumatic, lying in bed and in no acute distress. HEENT--PERRL, EOMI, mucous membranes and oropharynx Neck--supple, no JVD or bruits, thyroid normal, trachea midline, no adenopathy. Heart--normal S1 and S2, no extra beats, no murmurs, rubs or gallops. Lungs-- no respiratory distress, no accessory muscle use. Abdomen--normal bowel sounds and soft, nontender and nondistended, no hernias or masses, no organomegaly. Extremities--no cyanosis, clubbing or edema. There are good distal pulses b/l. Dermatologic--normal skin turgor, normal color, warm and dry, no abnormal lymph nodes, no rash. Neurologic--cranial nerves II through XII grossly intact, motor and sensory examination normal. Rheumatologic--normal range of motion, nontender, muscles and joints. Psychiatric--normal affect. Diagnostics Laboratory Results Results Past 24 Hours Test 02/13/17 23:49 02/14/17 02:12 02/14/17 04:44 Range/Units White Blood Count 9.98 4.8-10.8 K/uL Red Blood Count 4.92 4.2-5.4 M/uL Hemoglobin 14.6 12.0-16.0 g/dL Hematocrit 43.9 37-47 % Mean Corpuscular Volume 89.2 80-100 fL Mean Corpuscular Hemoglobin 29.7 25-34 pg Mean Corpuscular Hemoglobin Concent 33.3 32-36 g/dl RDW Standard Deviation 45.0 36.4-46.3 fL RDW Coefficient of Variation 13.8 11.5-14.5 % Platelet Count 387 130-400 K/uL Mean Platelet Volume 9.1 7.4-10.4 fL Prothrombin Time 9.7 9.0-12.0 SECONDS Prothromb Time International Ratio 0.9 0.9-1.1 Activated Partial Thromboplast Time 26.1 21.0-31.0 SECONDS Partial Thromboplastin Ratio 1.0 Sodium Level 144 136-145 mmol/L Potassium Level 3.5 3.5-5.1 mmol/L Chloride Level 110 98-107 mmol/L Carbon Dioxide Level 27 21-32 mmol/L Anion Gap 7.0 3-11 mmol/L Blood Urea Nitrogen 22 7-18 mg/dl Creatinine 1.10 0.60-1.20 mg/dl Est Creatinine Clear Calc Drug Dose 44.7 ml/min Estimated GFR () 61.9 Estimated GFR (Non- 53.4 BUN/Creatinine Ratio 19.7 10-20 Random Glucose 156 70-99 mg/dl Calcium Level 9.0 8.5-10.1 mg/dl Total Bilirubin 0.2 0.2-1 mg/dl Direct Bilirubin < 0.1 0-0.2 mg/dl Aspartate Amino Transf (AST/SGOT) 18 15-37 U/L Alanine Aminotransferase (ALT/SGPT) 33 12-78 U/L Alkaline Phosphatase 107 45-117 U/L Total Creatine Kinase 80 66 26-192 U/L Creatine Kinase MB 0.9 0.8 0.5-3.6 ng/ml Creatine Kinase MB Ratio 1.1 1.2 0-3.0 Troponin I < 0.015 0.042 0-0.045 ng/ml Pro-B-Type Natriuretic Peptide 127 0-900 pg/ml Total Protein 7.9 6.4-8.2 gm/dl Albumin 3.8 3.4-5.0 gm/dl Lipase 307 73-393 U/L Diagnostic Radiology Chest x-ray is normal. CT dissection study is negative. EKG EKG #1 shows normal sinus rhythm at 92 bpm, with subtle ST depressions in lateral chest leads. EKG #2 shows sinus tachycardia at 110 bpm, with resolved ST depressions. Impression Assessment and Plan Unstable angina--patient has a significant number of risk factors as noted. She 's had symptoms of gradually worsened over the past 2-3 weeks. She'll be admitted to the telemetry unit for serial cardiac enzymes, cardiac rhythm monitoring and a 2-D echocardiogram with Dopplers. If enzymes become elevated and or there are EKG changes, the patient will be started on heparin drip. For now she is given aspirin 324 mg by mouth now and 81mg every morning, Nitropaste 1 inch to anterior chest wall every 6 hours, and normal saline with potassium chloride 20 mEq at 100 ML's per hour. Tobacco use disorder--discussed with patient the importance of tobacco cessation as a modifiable risk factor for heart disease. GERD--change omeprazole 20 mg by mouth daily to pantoprazole 40 mg by mouth daily. Hyperglycemia--blood sugar was 156. We'll check a hemoglobin A1c. Level of Care Telemetry Advanced Directives Existing Advance Directive: No Existing Living Will: No Existing Power of Senior Editor: No Resuscitation Status FULL RESUSCITATION VTE Prophylaxis VTE Risk Assessment Done? Y/N: Yes Risk Level: Moderate Given or contraindicated: SCD's
--- NOTE | 2017-02-14 07:42 | DIAGNOSTIC IMAGING REPORT ---
CHEST CTA for AORTIC DISSECTION CT DOSE: 425.10 mGy.cm HISTORY: Atypical chest pain. TECHNIQUE: Multiaxial CT images of the chest were performed both before and after the intravenous administration of contrast to evaluate the aorta. Maximal intensity projection images were also obtained. COMPARISON STUDY: Chest 02/09/2017. FINDINGS: Noncontrast imaging shows no evidence for an intramural hematoma within the thoracic aorta. Normal caliber thoracic aorta with no evidence for dissection. The main pulmonary arteries are patent. No mediastinal or hilar lymphadenopathy. The liver and spleen are unremarkable. No pleural or pericardial effusions. No fractures within the visualized osseous structures. No pneumothorax. No focal lung consolidations. IMPRESSION: No evidence for an aortic dissection. Electronically signed by: Kurtis Renner M.D. 02/14/2017 7:40 AM Dictated Date/Time: 02/14/2017 7:36 AM
[2017-02-14] MEDS ORDERED: PNEUMOCOCCAL POLYSACCHARIDES 25 MCG/0.5 ML VIAL/SYR IM. ONE (08:00)
[2017-02-14] MEDS: NITROGLYCERIN OINT 2% 1GM PACKET EXT SCH ×4 (08:00→20:20)
[2017-02-14] MEDS ORDERED: PNEUMOCOCCAL ADMINISTRATION CHARGE ONE (08:00)
[2017-02-14] MEDS ORDERED: INFLUENZA VIRUS QUAD VACCINE 0.5 ML SYR IM. ONE (08:00)
[2017-02-14] MEDS ORDERED: INFLUENZA ADMINISTRATION CHARGE ONE (08:00)
--- NOTE | 2017-02-14 08:05 | DIAGNOSTIC IMAGING REPORT ---
CHEST ONE VIEW PORTABLE HISTORY: Atypical chest pain. COMPARISON: Chest 02/09/2017. FINDINGS: The lungs are clear. Cardiac silhouette is normal in size. No pleural effusions. No pneumothorax. IMPRESSION: No acute process. Electronically signed by: Kurtis Renner M.D. 02/14/2017 8:03 AM Dictated Date/Time: 02/14/2017 8:02 AM
[2017-02-14] MEDS: PANTOprazole SOD 40 MG TAB PO SCH ×2 (09:27→11:34)
[2017-02-14 10:52] LABS: CKMB/CK RATIO 1.5 (0-3.0)
[2017-02-14] MEDS ORDERED: ASPIRIN 81 MG CHEW PO STA (11:27)
[2017-02-14] MEDS ORDERED: ENOXAPARIN 60 MG/0.6 ML SYR SQ ONE ×2 (11:30)
[2017-02-14 12:09] LABS: BASO % 0.5 %; BASO ABS # 0.05 K/uL (0-0.2); EOS % 1.7 %; HEMATOCRIT 41.1 % (37-47); IG% 0.1 %; LYMPH % 33.9 %; LYMPH ABS # 3.52 K/uL (1.2-3.4); MEAN CELL VOLUME 89.9 fL (80-100); MEAN CORPUSCULAR HEMOGLOBIN 30.2 pg (25-34); MONO % 9.6 %; NEUT % 54.2 %; PLATELET COUNT 349 K/uL (130-400); RED BLOOD COUNT 4.57 M/uL (4.2-5.4); WHITE BLOOD COUNT 10.39 K/uL (4.8-10.8)
[2017-02-14 12:13] LABS: COMPLETE YES; MEAN CORPUSCULAR HGB CONC 33.6 g/dl (32-36)
[2017-02-14] MEDS ORDERED: HEPARIN IV BOLUS 4,000 UNIT in SYRINGE 0 ML IV ONE (12:15)
[2017-02-14 12:18] LABS: INR 0.9 (0.9-1.1)
[2017-02-14] MEDS: HEPARIN 25,000 UNIT/500ML D5W 500 ML IV PRN ×2 (13:21→20:15)
--- NOTE | 2017-02-14 14:10 | Cardiology Consultation ---
Cardiology Consultation Date of Service Feb 14, 2017. Cardiology Consultation CARDIOLOGY CONSULTATION DATE OF CONSULTATION: February 14, 2017 REFERRING PHYSICIAN: Gorge Goddard MD REASON FOR CONSULT: Chest pain HISTORY OF PRESENT ILLNESS: 61-year-old woman with no prior cardiac history who has had intermittently recurring chest discomfort, and equivocal dobutamine stress echo last week ( negative echo but persistent ST depression on ECG), was admitted last evening with chest, left arm, and jaw pain. Initial ECG and troponins were negative, however her third troponin was elevated and there were minor ECG abnormalities. She did have some chest discomfort after admission, this responded well to a single dose of morphine as well as continued nitroglycerin paste. At the time of my evaluation this afternoon, she was comfortable. MEDICATIONS: Omeprazole ALLERGIES: Penicillins, "manohar" PAST MEDICAL HISTORY: Leg DVT Dyslipidemia PAST SURGICAL HISTORY: Ankle fusion SOCIAL HISTORY: Every day smoker. No alcohol. and accompanied by her . FAMILY HISTORY: REVIEW OF SYSTEMS: Per admission HPI and review of systems. PHYSICAL EXAMINATION: No distress. Vitals: Afebrile. BP 125/86, pulse 83 and regular, respirations 16 nonlabored. Skin: No unusual lesions or ecchymosis. HEENT: Unremarkable. Neck: Jugular venous pulse at the clavicle at 90, no carotid bruits. Lungs: Moderately decreased breath sounds without wheezing or crackles. No accessory muscle use. Cardiac: Regular rhythm with normal S1 and S2. No murmur or gallop. Abdomen: Benign. Extremities: Nontender without edema. Intact peripheral pulses. Neurologic: Normal affect, nonfocal DATA: Initial ECG showed sinus rhythm with a minor nonspecific ST depression in the anterolateral leads, this was unchanged compared with earlier in the week. ECG today showed new T-wave flattening with minimal inversion in the anterolateral leads, no change in very minimal ST depression. Chest x-ray was unremarkable. CT of the chest was negative for dissection. Normal CBC, coagulation studies, and electrolytes. BUN 22, creatinine 1.1. Normal transaminases. Normal proBNP. After 2 normal troponins, her third troponin was elevated 0.05. CK was 80 and declined with negative MB. IMPRESSION: 1. Presumed unstable angina/non-STEMI, currently asymptomatic. 2. History of dyslipidemia. 3. Ongoing tobacco smoker. 4. Possible topical anesthetic allergy (allergic to "manohar") 5. Otherwise generally healthy 61-year-old woman. DISCUSSION: Patient with recurring chest discomfort increasing in intensity and frequency, now with elevated troponin and mildly dynamic ECG. We discussed risks/benefits/ alternatives to cardiac catheterization, since she already had a stress study which was equivocal it would be appropriate to proceed with catheterization tomorrow. If she has recurrent symptoms with significant ECG changes and is unresponsive to medical management, could need intervention sooner. Agree with aspirin, nitro paste, anticoagulation (switched from Lovenox to intravenous heparin to allow for more than latitude in timing of catheterization ). Will discuss potential role of loading additional anti-platelet agent with interventional cardiology and add if they suggest pursuing this option. Thank you for this consultation.
[2017-02-14] MEDS ORDERED: TICAGRELOR 90 MG TAB PO ONE (14:45)
--- NOTE | 2017-02-14 17:59 | Hospitalist Progress Note ---
Hospitalist Progress Note Date of Service Feb 14, 2017. Subjective Pt evaluation today including: conversation w/ patient, conversation w/ family , physical exam, chart review, lab review I saw the patient and she did not complain of any chest pain. We had a detailed discussion about tobacco cessation. When I left the nurse called back to say she has never got relief from the chest pain that she presented with. Cardiovascular: + chest pain Medications Medications (Trade) Dose Ordered Sig/Abi Route Start Time Stop Time Status Last Admin Dose Admin Nitroglycerin 0.4 mg 0.4 mg STK-MED ONCE .ROUTE 02/14/17 00:08 02/14/17 00:09 DC 02/14/17 00:03 0.4 MG Potassium Chloride/Sodium Chloride (Nss + 20meq KCl 1000ml) 1,000 ml @ 100 mls/hr Q10H IV 02/14/17 03:30 03/16/17 03:29 02/14/17 14:20 100 MLS/HR Nitroglycerin (Nitroglycerin 2% Oint) 1 inch Q6H EXT 02/14/17 08:00 03/16/17 07:59 02/14/17 15:00 1 INCH Pantoprazole Sodium (Protonix Tab) 40 mg QAM PO 02/14/17 09:00 03/16/17 08:59 02/14/17 11:34 40 MG Ondansetron HCl (Zofran Inj) 4 mg Q6H PRN IV 02/14/17 02:00 03/16/17 01:59 02/14/17 11:45 4 MG Morphine Sulfate (MoRPHine SULFATE INJ) 2 mg Q2H PRN IV 02/14/17 02:00 02/28/17 01:59 02/14/17 11:35 2 MG Nitroglycerin (Nitroglycerin 2% Oint) 1 inch STK-MED ONCE .ROUTE 02/14/17 02:03 02/14/17 02:04 DC 02/14/17 01:59 1 INCH Aspirin (Aspirin Chew) 324 mg NOW STAT PO 02/14/17 11:27 02/14/17 11:32 DC 02/14/17 11:37 324 MG Heparin Sodium/ Dextrose 1 ea 1 ea Q30M N/A 02/14/17 11:47 02/14/17 12:08 DC 02/14/17 11:47 1 EA Heparin Sodium (Porcine) 4000 unit/Syringe 4 ml @ 10 mls/min NOW ONCE IV 02/14/17 12:15 02/14/17 12:16 DC 02/14/17 13:06 10 MLS/MIN Heparin Sodium/ Dextrose (Heparin 25,000 Unit/500ml D5W) 500 ml @ 19 mls/hr Q24H PRN IV 02/14/17 12:15 03/16/17 12:14 02/14/17 13:21 19 MLS/HR Ticagrelor (Brilinta Cap) 180 mg NOW ONCE PO 02/14/17 14:45 02/14/17 14:47 DC 02/14/17 14:59 180 MG Objective Vital Signs Date Time Temp Pulse Resp B/P Pulse Ox O2 Delivery O2 Flow Rate FiO2 02/14/17 16:42 36.6 68 18 101/63 98 Room Air 02/14/17 16:12 Room Air 02/14/17 12:09 36.6 83 16 125/86 98 Room Air 02/14/17 12:00 Room Air 02/14/17 11:47 90 125/83 02/14/17 09:30 78 100/70 02/14/17 08:01 36.4 70 16 90/49 97 Room Air 02/14/17 08:00 Room Air 02/14/17 04:00 Room Air 02/14/17 03:09 36.4 70 123/78 99 Room Air 02/14/17 02:33 79 18 136/96 98 02/14/17 02:10 78 18 136/74 98 Room Air 02/14/17 02:09 132/81 02/14/17 02:05 94 02/14/17 02:00 118/84 02/14/17 01:40 124/79 02/14/17 01:35 87 18 122/85 97 02/14/17 01:30 88 20 112/86 97 Room Air 02/14/17 01:25 124/80 02/14/17 01:24 83 21 97 02/14/17 01:20 125/80 02/14/17 01:16 102/72 02/14/17 01:10 122/75 02/14/17 01:09 100 17 98 02/14/17 01:05 111/62 02/14/17 01:00 97/74 02/14/17 00:55 95/65 02/14/17 00:54 97 21 95 02/14/17 00:49 103 21 93/61 96 02/14/17 00:44 106 16 96 Room Air 02/14/17 00:39 93 18 126/83 98 Room Air 02/14/17 00:34 92 18 99 02/14/17 00:29 93 22 97 Room Air 02/14/17 00:24 99 18 103/72 95 02/14/17 00:19 95 25 96 02/14/17 00:14 95 27 103/74 94 Room Air 02/14/17 00:09 94 18 97 02/14/17 00:06 113/76 02/14/17 00:04 100 Room Air 02/14/17 00:04 92 23 99 02/14/17 00:00 150/83 02/13/17 23:59 91 22 100 02/13/17 23:54 93 20 100 02/13/17 23:51 100 Room Air 02/13/17 23:50 93 02/13/17 23:49 37.6 100 18 156/98 100 Room Air 02/13/17 23:49 91 21 97 02/13/17 23:46 156/98 Physical Exam General Appearance: WD/WN, no apparent distress Eyes: normal inspection, sclerae normal ENT: normal ENT inspection, hearing grossly normal Neck: trachea midline Respiratory/Chest: lungs clear, normal breath sounds Cardiovascular: regular rate, rhythm, no edema, no gallop, no JVD, no murmur Abdomen: normal bowel sounds, non tender, soft Extremities: no pedal edema Neurologic/Psychiatric: alert, normal mood/affect Laboratory Results Last 24 Hours Test 02/13/17 23:49 02/14/17 02:12 02/14/17 08:25 02/14/17 10:05 White Blood Count 9.98 K/uL Red Blood Count 4.92 M/uL Hemoglobin 14.6 g/dL Hematocrit 43.9 % Mean Corpuscular Volume 89.2 fL Mean Corpuscular Hemoglobin 29.7 pg Mean Corpuscular Hemoglobin Concent 33.3 g/dl RDW Standard Deviation 45.0 fL RDW Coefficient of Variation 13.8 % Platelet Count 387 K/uL Mean Platelet Volume 9.1 fL Prothrombin Time 9.7 SECONDS Prothromb Time International Ratio 0.9 Activated Partial Thromboplast Time 26.1 SECONDS Partial Thromboplastin Ratio 1.0 Sodium Level 144 mmol/L Potassium Level 3.5 mmol/L Chloride Level 110 mmol/L Carbon Dioxide Level 27 mmol/L Anion Gap 7.0 mmol/L Blood Urea Nitrogen 22 mg/dl Creatinine 1.10 mg/dl Est Creatinine Clear Calc Drug Dose 44.7 ml/min Estimated GFR () 61.9 Estimated GFR (Non- 53.4 BUN/Creatinine Ratio 19.7 Random Glucose 156 mg/dl Calcium Level 9.0 mg/dl Total Bilirubin 0.2 mg/dl Direct Bilirubin < 0.1 mg/dl Aspartate Amino Transf (AST/SGOT) 18 U/L Alanine Aminotransferase (ALT/SGPT) 33 U/L Alkaline Phosphatase 107 U/L Total Creatine Kinase 80 U/L 66 U/L 65 U/L Creatine Kinase MB 0.9 ng/ml 0.8 ng/ml 1.0 ng/ml Creatine Kinase MB Ratio 1.1 1.2 1.5 Troponin I < 0.015 ng/ml 0.042 ng/ml 0.053 ng/ml Pro-B-Type Natriuretic Peptide 127 pg/ml Total Protein 7.9 gm/dl Albumin 3.8 gm/dl Lipase 307 U/L Hepatitis C Antibody Screen NEG Test 02/14/17 11:25 02/14/17 17:48 White Blood Count 10.39 K/uL Red Blood Count 4.57 M/uL Hemoglobin 13.8 g/dL Hematocrit 41.1 % Mean Corpuscular Volume 89.9 fL Mean Corpuscular Hemoglobin 30.2 pg Mean Corpuscular Hemoglobin Concent 33.6 g/dl Platelet Count 349 K/uL Mean Platelet Volume 9.0 fL Neutrophils (%) (Auto) 54.2 % Lymphocytes (%) (Auto) 33.9 % Monocytes (%) (Auto) 9.6 % Eosinophils (%) (Auto) 1.7 % Basophils (%) (Auto) 0.5 % Neutrophils # (Auto) 5.63 K/uL Lymphocytes # (Auto) 3.52 K/uL Monocytes # (Auto) 1.00 K/uL Eosinophils # (Auto) 0.18 K/uL Basophils # (Auto) 0.05 K/uL RDW Standard Deviation 46.8 fL RDW Coefficient of Variation 14.1 % Immature Granulocyte % (Auto) 0.1 % Immature Granulocyte # (Auto) 0.01 K/uL Prothrombin Time 10.0 SECONDS Prothromb Time International Ratio 0.9 Activated Partial Thromboplast Time 26.2 SECONDS Partial Thromboplastin Ratio 1.0 Assessment and Plan (1) Unstable angina Assessment & Plan: Aspirin and heparin IV added with a dose of morphine. Goal is to alleviate chest pain. Stress Echo done last week was abnormal, and the patient will go for cardiac cath tomorrow. Discussed with Dr. Dexter. (2) Tobacco abuse counseling Assessment & Plan: patient agrees to wellbutrin to assist her decision to quit. (3) Hyperlipemia (4) Advance care planning Assessment & Plan: discussed in detail the need to have a living will for all adults. In addition is her is not the best person to speak for her, which she was implying than she will need a POA for one her childen to convey her wishes.
[2017-02-14 18:40] LABS: CKMB/CK RATIO 1.2 (0-3.0)
[2017-02-14 18:43] LABS: PARTIAL THROMBOPLASTIN RATIO 4.1
[2017-02-14] MEDS: BuPROPion SR 150 MG TABCR PO SCH (20:21)
[2017-02-14] MEDS: TICAGRELOR 90 MG TAB PO SCH (20:21)
[2017-02-14] MEDS ORDERED: ENOXAPARIN 60 MG/0.6 ML SYR SQ SCH ×2 (23:00)
[2017-02-15] VITALS (8 sets, daily range): BP systolic 116–167; BP diastolic 68–81; PULSE 71–94; TEMP 36.4–36.9; O2SAT 94–100
[2017-02-15] MEDS: NSS + 20MEQ KCL 1000ML 1,000 ML IV SCH ×2 (00:14→11:52)
[2017-02-15] MEDS: NITROGLYCERIN OINT 2% 1GM PACKET EXT SCH ×2 (02:20→08:00)
[2017-02-15 02:41] LABS: BASO % 0.5 %; BASO ABS # 0.06 K/uL (0-0.2); COMPLETE YES; EOS % 2.6 %; HEMATOCRIT 38.8 % (37-47); IG% 0.2 %; LYMPH % 30.8 %; LYMPH ABS # 3.51 K/uL (1.2-3.4); MEAN CELL VOLUME 89.8 fL (80-100); MEAN CORPUSCULAR HEMOGLOBIN 29.9 pg (25-34); MEAN CORPUSCULAR HGB CONC 33.2 g/dl (32-36); MEAN PLATELET VOLUME 8.9 fL (7.4-10.4); MONO % 9.6 %; NEUT % 56.3 %; PLATELET COUNT 332 K/uL (130-400); RED BLOOD COUNT 4.32 M/uL (4.2-5.4)
[2017-02-15 03:04] LABS: PARTIAL THROMBOPLASTIN RATIO 2.7
[2017-02-15 03:09] LABS: BUN/CREATININE RATIO 12.2 (10-20); CALCIUM 8.5 mg/dl (8.5-10.1); CREATININE 1.1 mg/dl (0.60-1.20); POTASSIUM 4.6 mmol/L (3.5-5.1)
[2017-02-15 05:49] LABS: ESTIMATED AVERAGE GLUCOSE 114 mg/dl; HA1C FLAG Normal (Normal)
[2017-02-15] MEDS ORDERED: NiCARDipine HCL INJ 2.5 MG/ML 10 ML AMP ONE (08:50)
[2017-02-15] MEDS ORDERED: MIDAZOLAM HCL 1 MG/ML 2ML VIAL ONE ×2 (08:51→09:46)
[2017-02-15] MEDS ORDERED: FENTANYL CITRATE INJ 50 MCG/1 ML 2 ML VIAL ONE ×2 (08:51→09:46)
[2017-02-15] MEDS ORDERED: HEPARIN SOD (PORCINE) 1000 UNIT/ML 10 ML VIAL ONE (08:51)
[2017-02-15] MEDS ORDERED: NITROGLYCERIN/D5W 100MCG/ML 20ML SYR ONE (08:52)
--- NOTE | 2017-02-15 08:53 | Procedure Note ---
Pre-Mod Sedation Assessment General Date of Moderate Sedation: Feb 15, 2017. Vital Signs: Vital Signs Past 12 Hours Date Time Temp Pulse Resp B/P Pulse Ox O2 Delivery O2 Flow Rate FiO2 02/15/17 07:32 36.9 94 18 167/81 97 Room Air 02/15/17 04:00 Room Air 02/15/17 03:23 36.9 80 16 116/72 98 Room Air 02/15/17 00:00 Room Air 02/14/17 23:36 37.0 78 16 116/58 98 Room Air Review Cardiovascular: regular rate, rhythm, no edema, no gallop, no JVD, no murmur, normal peripheral pulses Abdomen: normal bowel sounds, non tender, soft Lungs: lungs clear Pre-Sedation Airway Assessment Oral Cavity: Dentures Able to Visualize Vocal Cords: No Short Thick Neck: No Hx of Sleep Apnea: No Smoking Status: Current Every Day Smoker Mallampati Classification: Class IV Procedure Planning Contraindications-for Mod Sed: None Yes Notes The planned sedation has been discussed with the patient and consent obtained. I have identified the patient, determined the appropriateness of sedation and have assessed the patient immediately prior to the procedure. All medicine(s) and interventions are by my order.
[2017-02-15] MEDS: TICAGRELOR 90 MG TAB PO SCH ×2 (09:00→19:55)
[2017-02-15] MEDS ORDERED: ASPIRIN 81 MG CHEW ONE (09:44)
[2017-02-15] MEDS ORDERED: ACETAMINOPHEN 325 MG TAB PO PRN (11:15)
[2017-02-15] MEDS ORDERED: ATROPINE SULFATE 0.1 MG/ML 5ML SYR IV PRN (11:15)
--- NOTE | 2017-02-15 11:22 | Procedure Note ---
Post-Mod Sedation Assessment General Date of Moderate Sedation Feb 15, 2017. Vital Signs: Vital Signs Past 12 Hours Date Time Temp Pulse Resp B/P Pulse Ox O2 Delivery O2 Flow Rate FiO2 02/15/17 11:00 85 16 120/65 95 Room Air 02/15/17 10:45 87 16 113/75 95 Room Air 02/15/17 08:00 Room Air 02/15/17 07:32 36.9 94 18 167/81 97 Room Air 02/15/17 04:00 Room Air 02/15/17 03:23 36.9 80 16 116/72 98 Room Air 02/15/17 00:00 Room Air 02/14/17 23:36 37.0 78 16 116/58 98 Room Air Review - Discharge Criteria Vital Signs Stable: Yes Alert/Oriented/Conversant: Yes Returned to Baseline Mental St: Yes Nausea Absent/Minimal: Yes Pain/Discomfort/Absent/Minimal: Yes Normal/Baseline Respirations: Yes Active Bleeding?: No Pt Received D/C Instructions: N/A Prescriptions Given: None Specific Proced. D/C Criteria Distal Pulses Present (Cardiac: Yes Groin site assessed-Card Cath: N/A Voided Prior To Discharge: N/A Discharged Patients Adult Escort/Transportation: N/A
[2017-02-15] MEDS: PANTOprazole SOD 40 MG TAB PO SCH (11:49)
[2017-02-15] MEDS: BuPROPion SR 150 MG TABCR PO SCH ×2 (11:50→19:55)
--- NOTE | 2017-02-15 12:21 | Cardiac Catheterization ---
Procedure Note Procedure Date Feb 15, 2017. Pre-Procedure Diagnosis Non STEMI AUC Score 8 Post-Procedure Diagnosis Severe CAD, Successful PCI, Normal LV Systolic Function, Elevated Intracardiac Pressures (Mildly elevated LVEDP.) Procedure(s) Performed Coronary Angiography, Left Heart Cath, LV Angiography, PTCA, Drug Eluting Stent [employer] Director Dr. Cotto [employer] Manager(s) Ghassan Pope RTR Estimated Blood Loss 30 ml Medication(s) Aspirin, Fentanyl, Heparin, Nicardipine (intra arterial and intra coronary), Versed Prior to PCI 90 mg ticagrelor and 81 mg aspirin given PO. Patient had received loading dose of ticagrelor as well as aspirin 324 mg yesterday. Summary of Findings Clinical indications: Non ST elevation myocardial infarction in a patient with dyslipidemia and cigarette smoking history. Catheterization site: 6 [place] glide sheath right radial artery. Diagnostic catheters: 5 [place] brachial 3.5 and pigtail catheters. Interventional equipment: 5 [place] EBU 3.5 guide catheter, Anderson Trek 3.0 x 12 millimeter balloon dilatation catheter, Anderson Trek Rx 3.0 x 12 millimeter balloon dilatation catheter, Medtronic Resolute Integrity 4.0 x 18 millimeter drug-eluting stent, Medtronic [place] guidewire, Medtronic [place] Euphora 4.0 x 12 millimeter balloon dilatation catheter, Anderson Wiggle wire. Interventional protocol: Following performance of diagnostic angiography was 1st attempted to use a 6 [place] EBU 3.5 guide catheter. Because of spasm in the radial artery this catheter would not advance. Following the administration of intra arterial nicardipine and using the 5 [place] guide catheter the guide catheter was able to be advanced. The [place] guidewire was advanced across the proximal left circumflex stenosis. It was placed in a left circumflex marginal branch. An over the wire 3 x 12 millimeter balloon was then advanced to the circumflex stenosis. The balloon was inflated. It was seen to quickly shift its position moving proximal to the stenosis. It was then attempted to readvance the balloon to the stenosis. Would not advance. This balloon was then withdrawn. A new 3 x 12 millimeter monorail balloon was then advanced to the circumflex stenosis. Two balloon inflations to maximum pressure of 14 atmospheres and maximum duration of 20 seconds was performed to the stenosis. Follow-up angiography was performed. The stent was then deployed at a pressure of 10 atmospheres for duration of 45 seconds. The midportion of the stent +was under expanded. The noncompliant balloon was then advanced over the cougar guidewire. The tip of this balloon dilatation catheter would not advance across the stent. With repeated attempts to pass this balloon guide catheter and guidewire position was lost. The guide catheter was repositioned. The left coronary artery was recannulated. The proximal left circumflex stenosis was then crossed with a Wiggle guidewire. With the use of this wire the balloon was able to be advanced into the stent. Two balloon inflations were then performed to the entire stented region to a pressure of 17 atmospheres for duration of 20 seconds. Follow-up angiography was then performed. Prior to coronary intervention intravenous heparin had been administered and a therapeutic activated clotting time was documented. Follow-up angiography was performed following intervention from orthogonal projections with the guidewire in place and then guidewire withdrawn. The patient had no complaints of chest pain or other anginal type symptoms during the procedure. She was hemodynamically stable. Her rhythm was stable throughout the procedure. At the completion of the procedure the right radial sheath was removed and hemostasis was attained with application of a Terumo TR band. Complications: None. Findings: Fluoroscopy revealed coronary calcifications. The coronary circulation was codominant. The left main coronary artery was a large caliber vessel giving rise to a large caliber left circumflex coronary artery medium caliber left anterior descending coronary artery. The left main had no obstructive disease. The very proximal LAD at 20 percent stenosis. The LAD then gave rise to a long small to medium caliber diagonal artery without obstructive disease. The mid LAD had diffuse mild atherosclerotic disease of 0- 10 percent luminal diameter narrowing. The distal LAD was a very small caliber and had no obstructive disease. The ostium of the left circumflex and very proximal left circumflex had a 20 percent stenosis. The proximal circumflex then had a discrete 95 percent stenosis. There was possible associated thrombus at this site. [place] 3 flow into the mid and distal circumflex. The mid circumflex had a 30 percent stenosis where it gave rise to a bifurcating small to medium caliber marginal artery. The superior branch of the marginal had a 30 percent ostial stenosis after the bifurcation. The inferior branch had a 30-50 percent ostial stenosis after the bifurcation. The distal circumflex had a 30 percent stenosis. Distal circumflex gave rise to a small caliber posterolateral artery. Following stent deployment and post stent deployment noncompliant balloon inflations the residual stenosis at the proximal left circumflex stent site was 0-10 percent. There is a step-up and step-down prior to and distal to the stent respectively. No dissection, thrombus, perforation, or distal embolic event. [place] 3 flow into the circumflex and all of its branches. The right coronary was a small to medium caliber vessel. 30 percent proximal stenosis. Sequential 30 percent, 75 percent , and 30 percent mid segment stenoses. No atherosclerotic disease noted in the distal segment. The distal RCA gave rise to a very small caliber posterior descending artery without obstructive disease. Left ventricular angiography performed from the 30 degree right anterior oblique projection with a hand injection of contrast dye revealed all LV segments to contract normally. LV ejection fraction 60 percent. No mitral regurgitation. Plan: Continue aspirin and ticagrelor. Indefinite aspirin therapy. Dual antiplatelet therapy for at least 1 year. Beta-petey, statin, MANDEEP-inhibitor therapy. Medical management of the RCA stenosis unless she has anginal symptoms refractory to medical therapy. Referral to cardiac rehabilitation and smoking cessation counseling. Hemodynamics Rest Ao: 99/60/80 mm Hg Final Ao: 111/62/86 mm Hg LV: 103/15 mm Hg Recommendations Medical therapy and/or Counseling, PCI without planned CABG Radiation Exposure (mGy) 3020 Contrast (mls) 210 ml Visipaque Fluids (cc crystalloids) 300 Drains none Anesthesia IV versed,fentanyl Procedural Complication(s) None Disposition PCU ACC Data Cardiac Status Clinical evaluation leading to the procedure CAD Presntation: Non STEMI Anginal Classification: CCS IV Heart Failure: No Cardiogenic Shock w/in 24Hrs: No Cardiac Arrest w/in 24Hrs: No Imaging studies past 6 months: Yes Standard Exercise Stress Test: No Stress Echocardiogram: Yes - Negative Stress Testing w/SPECT MPI: No Cardiac CTA: No Coronary Anatomy Dominant: Co-dominant Left Main (% Stenosis): Normal LAD (% Stenosis): Proximal (20), Mid (0-10) D1 (% Stenosis): Normal Circumflex (% Stenosis): Ostial (20), Proximal (20,95), Mid (30), Distal (30) OM1 (% Stenosis): Ostial (30) OM2 (% Stenosis): Ostial (30-50) L PL1 (% Stenosis): Normal RCA (% Stenosis): Proximal (30), Mid (30,75,30) R PDA (% Stenosis): Normal Left Ventricular Angiography EF (%): 60 Wall Motion: Inferior (Normal), Apical (Normal), Anterior (Normal) Mitral Regurgitation: None Diagnostic Physician's Name: Mark Cotto M.D. Status: Elective Closure Device Percutaneous Entry Location: Radial Closure Device: Radial Band Recommendations: Medical therapy and/or Counseling, PCI without planned CABG PCI Indication: PCI for high risk Non-STEMI Lesion Segment Name: Proximal left circumflex Culprit Artery: Yes Stenosis Prior to Rx (%): 95 Chronic Total Occlusion: No IVUS: No FFR: No Pre-Procedure [place] Flow: 3 Lesion Complexity: Non-High/Non-C Lesion Length (mm): 12 Thrombus Present: Yes Bifurcation Lesion: No Guidewire Across Lesion: Yes Guidewire: Stenosis Post-Procedure (%): 0-10 Post-Procedure [place] Flow: 3 Type of Device(s): Medtronic Resolute Integrity 4.0 x 18 millimeter drug-eluting stent. Post dilated with 4 millimeter diameter noncompliant balloon. Intraprocedure Events Significant Dissection: No Perforation: No
--- NOTE | 2017-02-15 13:29 | Hospitalist Progress Note ---
Hospitalist Progress Note Date of Service Feb 15, 2017. (Rosalva Caceres PA-C) Subjective Pt evaluation today including: conversation w/ patient, conversation w/ family , physical exam, chart review, lab review, review of studies, conversation w/ business continuity consultant, review of inpatient medication list Patient says that she "feels great." Denies any chest pain or pressure. No shortness of breath. No nausea. Tolerating a diet. Does note a little bit of pain in the right antecubital region that she associates with the cardiac catheterization. Additional Comments: 6 system review negative. Please see pertinent positives in the history of present illness section. (Rosalva Caceres PA-C) Objective Vital Signs Date Time Temp Pulse Resp B/P Pulse Ox O2 Delivery O2 Flow Rate FiO2 02/15/17 12:12 Room Air 02/15/17 12:10 87 16 120/75 99 Room Air 02/15/17 11:35 36.5 87 19 133/68 100 Room Air 02/15/17 11:00 85 16 120/65 95 Room Air 02/15/17 10:45 87 16 113/75 95 Room Air 02/15/17 08:00 Room Air 02/15/17 07:32 36.9 94 18 167/81 97 Room Air 02/15/17 04:00 Room Air 02/15/17 03:23 36.9 80 16 116/72 98 Room Air 02/15/17 00:00 Room Air 02/14/17 23:36 37.0 78 16 116/58 98 Room Air 02/14/17 20:15 97 Room Air 02/14/17 19:58 36.6 81 16 107/77 97 Room Air 02/14/17 16:42 36.6 68 18 101/63 98 Room Air 02/14/17 16:12 Room Air (Rosalva Caceres PA-C) Physical Exam General Appearance: no apparent distress Eyes: EOMI Neck: no JVD Respiratory/Chest: lungs clear Cardiovascular: regular rate, rhythm, no murmur Abdomen: normal bowel sounds, non tender, soft Extremities: non-tender, no pedal edema Neurologic/Psychiatric: no motor/sensory deficits, oriented x 3 Skin: warm/dry (Rosalva Caceres PA-C) Laboratory Results 02/15/17 02:30 Red Blood Count 4.32, Mean Corpuscular Volume 89.8, Mean Corpuscular Hemoglobin 29.9, Mean Corpuscular Hemoglobin Concent 33.2, Mean Platelet Volume 8.9, Neutrophils (%) (Auto) 56.3, Lymphocytes (%) (Auto) 30.8, Monocytes (%) (Auto) 9.6, Eosinophils (%) (Auto) 2.6, Basophils (%) (Auto) 0.5, Neutrophils # (Auto) 6.42, Lymphocytes # (Auto) 3.51, Monocytes # (Auto) 1.09, Eosinophils # (Auto) 0.30, Basophils # (Auto) 0.06 02/15/17 02:30 Test 02/14/17 18:05 02/15/17 02:30 02/15/17 10:31 Total Creatine Kinase 66 U/L (26-192) Creatine Kinase MB 0.8 ng/ml (0.5-3.6) Creatine Kinase MB Ratio 1.2 (0-3.0) Troponin I 0.057 ng/ml (0-0.045) White Blood Count 11.40 K/uL (4.8-10.8) Red Blood Count 4.32 M/uL (4.2-5.4) Hemoglobin 12.9 g/dL (12.0-16.0) Hematocrit 38.8 % (37-47) Mean Corpuscular Volume 89.8 fL (80-100) Mean Corpuscular Hemoglobin 29.9 pg (25-34) Mean Corpuscular Hemoglobin Concent 33.2 g/dl (32-36) Platelet Count 332 K/uL (130-400) Mean Platelet Volume 8.9 fL (7.4-10.4) Neutrophils (%) (Auto) 56.3 % Lymphocytes (%) (Auto) 30.8 % Monocytes (%) (Auto) 9.6 % Eosinophils (%) (Auto) 2.6 % Basophils (%) (Auto) 0.5 % Neutrophils # (Auto) 6.42 K/uL (1.4-6.5) Lymphocytes # (Auto) 3.51 K/uL (1.2-3.4) Monocytes # (Auto) 1.09 K/uL (0.11-0.59) Eosinophils # (Auto) 0.30 K/uL (0-0.5) Basophils # (Auto) 0.06 K/uL (0-0.2) RDW Standard Deviation 46.6 fL (36.4-46.3) RDW Coefficient of Variation 14.0 % (11.5-14.5) Immature Granulocyte % (Auto) 0.2 % Immature Granulocyte # (Auto) 0.02 K/uL (0.00-0.02) Activated Partial Thromboplast Time 69.3 SECONDS (21.0-31.0) Partial Thromboplastin Ratio 2.7 Anion Gap 5.0 mmol/L (3-11) Est Creatinine Clear Calc Drug Dose 44.0 ml/min Estimated GFR () 61.9 Estimated GFR (Non- 53.4 BUN/Creatinine Ratio 12.2 (10-20) Calcium Level 8.5 mg/dl (8.5-10.1) Magnesium Level 2.0 mg/dl (1.8-2.4) Kaolin Activated Coagulation Time 317 SECONDS (94-140) Last 24 Hours Test 02/14/17 18:05 02/15/17 02:30 02/15/17 09:39 02/15/17 09:49 Activated Partial Thromboplast Time 107.8 SECONDS 69.3 SECONDS Partial Thromboplastin Ratio 4.1 2.7 Total Creatine Kinase 66 U/L Creatine Kinase MB 0.8 ng/ml Creatine Kinase MB Ratio 1.2 Troponin I 0.057 ng/ml White Blood Count 11.40 K/uL Red Blood Count 4.32 M/uL Hemoglobin 12.9 g/dL Hematocrit 38.8 % Mean Corpuscular Volume 89.8 fL Mean Corpuscular Hemoglobin 29.9 pg Mean Corpuscular Hemoglobin Concent 33.2 g/dl Platelet Count 332 K/uL Mean Platelet Volume 8.9 fL Neutrophils (%) (Auto) 56.3 % Lymphocytes (%) (Auto) 30.8 % Monocytes (%) (Auto) 9.6 % Eosinophils (%) (Auto) 2.6 % Basophils (%) (Auto) 0.5 % Neutrophils # (Auto) 6.42 K/uL Lymphocytes # (Auto) 3.51 K/uL Monocytes # (Auto) 1.09 K/uL Eosinophils # (Auto) 0.30 K/uL Basophils # (Auto) 0.06 K/uL RDW Standard Deviation 46.6 fL RDW Coefficient of Variation 14.0 % Immature Granulocyte % (Auto) 0.2 % Immature Granulocyte # (Auto) 0.02 K/uL Sodium Level 143 mmol/L Potassium Level 4.6 mmol/L Chloride Level 112 mmol/L Carbon Dioxide Level 26 mmol/L Anion Gap 5.0 mmol/L Blood Urea Nitrogen 13 mg/dl Creatinine 1.10 mg/dl Est Creatinine Clear Calc Drug Dose 44.0 ml/min Estimated GFR () 61.9 Estimated GFR (Non- 53.4 BUN/Creatinine Ratio 12.2 Random Glucose 107 mg/dl Calcium Level 8.5 mg/dl Magnesium Level 2.0 mg/dl Kaolin Activated Coagulation Time 188 SECONDS 353 SECONDS Test 02/15/17 10:31 Kaolin Activated Coagulation Time 317 SECONDS (Rosalva Caceres PA-C) Assessment and Plan (1) Unstable angina (2) Tobacco abuse counseling (3) Hyperlipemia (4) Advance care planning 61-year-old female with a history of tobacco abuse presenting to the emergency department complaining of intermittent chest pain. Unstable angina-status post cardiac catheterization today -1 stent placed in the left circumflex -Medical management suggested for the RCA -Begin ASA 81 mg daily, metoprolol 25 mg po BID, lisinopril 2.5 mg daily, Brilinta 90 mg po BID, atorvastatin 80 mg daily Tobacco abuse -Continue Wellbutrin and encouraged cessation ?Hx DVT-pt said she possibly had a blood clot in the 1970s, but denies ever taking AC This chart was completed in part utilizing [employer] Speech Voice Recognition software. Attempts were made to minimize the grammatical errors, random word insertions, pronoun errors and incomplete sentences. Any formal questions or concerns about the content, text or information contained within the body of this dictation should be directly addressed to the provider for clarification. (Rosalva Caceres PA-C) Reviewed: Pt Seen/Exam by Me (Lacie Barbosa MD) History Physician Facialist Supervision Note: I interviewed and examined the patient. Discussed with JENY Caceres and agree with findings and plan as documented in the note. Any exceptions or clarifications are listed here: Patient feeling good, no chest pain since her cardiac Stent placement. She is committed to quitting smoking. Vitals reviewed No acute distress Regular rate and rhythm no murmurs rubs Clear to auscultation bilaterally, breathing unlabored Extremities no edema 61-year-old female with unstable angina now status post drug-eluting stent to the left circumflex, also with significant disease in the RCA not stented. -Continue aspirin and Alimta, statin, lisinopril, metoprolol -Expect discharge tomorrow and will need follow-up with cardiology as an outpatient -Encouraged tobacco/smoking cessation and will continue bupropion upon discharge for at least 3-6 months Documented By: Lacie Barbosa (Lacie Barbosa MD)
[2017-02-15] MEDS ORDERED: KETOROLAC TROMETHAMINE 15 MG/ML VIAL IV. STA (15:09)
--- NOTE | 2017-02-15 16:05 | Cardiology Follow-Up ---
Cardiology Follow-Up Date of Service Feb 15, 2017. Cardiology Follow-Up SUBJECTIVE: 61-year-old generally healthy woman with a history of ongoing tobacco use but no prior cardiac history who was admitted for recurring chest discomfort and ruled in for non-STEMI. Catheterization today showed patent LAD, 75 % RCA, 95% circumflex (status post drug-eluting stent placed by Dr. Cotto earlier today) and multiple areas of nonocclusive disease. Of note, the patient had an equivocal dobutamine stress echo last week (negative echo but persistent ST depression on ECG). She was comfortable with no complaints this afternoon. Right radial access site with minor forearm swelling but good capillary refill and no pain. Patient denied chest pain, dyspnea, palpitations, or lightheadedness. PHYSICAL EXAMINATION: No distress. Vitals: Afebrile. 120/75, pulse 87 regular, respirations 16 and unlabored. Skin: No unusual lesions or ecchymosis. HEENT: Unremarkable. Neck: Jugular venous pulse at the clavicle at 90, no carotid bruits. Lungs: Moderately decreased breath sounds without wheezing or crackles. No accessory muscle use. Cardiac: Regular rhythm with normal S1 and S2. No murmur or gallop. Abdomen: Benign. Extremities: Right radial access site with clean dry dressing. Minor forearm swelling without ecchymoses. Capillary refill excellent (less than 1 second). No lower extremity edema. Intact peripheral pulses. Neurologic: Normal affect, nonfocal DATA: Labs from today with normal electrolytes, BUN 13, creatinine 1.1, glucose 107. Magnesium 2.0. WBC 11.4 with normal hemoglobin and platelet count. ECG this morning showed sinus rhythm with nonspecific lateral ST and T-wave abnormalities, these resolved post stenting. IMPRESSION: 1. Coronary artery disease, status post drug-eluting stent of circumflex lesion. 2. Remaining 75% right coronary artery stenosis and multiple nonocclusive stenoses, to be medically managed initially. 3. Non STEMI. 4. Daily tobacco smoker, plans on abstinence. 5. Dyslipidemia. 6. Otherwise healthy 61-year-old woman. DISCUSSION: Patient with crescendo angina and two vessel coronary artery disease, circumflex treated with drug-eluting stent this morning, right coronary artery will be medically managed initially. Aspirin 81 mg and atorvastatin 80 mg long-term, ticagrelor 90 mg b.i.d. for the next year. Emphasized to the patient the importance of not interrupting dual platelet therapy. Would continue both low-dose MANDEEP-inhibitor (lisinopril 2.5 mg daily) and beta- petey (changed to metoprolol succinate 50 mg daily upon discharge) with outpatient titration if necessary (e.g., increased beta-petey if any exertional angina related to increased heart rate). Enroll in cardiac rehab. Agree with Wellbutrin SR to aid in smoking cessation. Plan for discharge home tomorrow, I can see in follow-up in approximately 1 month.
--- NOTE | 2017-02-15 16:16 | CARDIOLOGY PROGRESS NOTE ---
DATE: 02/15/2017 SUBJECTIVE: The patient was seen by me this morning in her telemetry unit room prior to undergoing cardiac catheterization. She was seen by me during and after the procedure in the r and d lab technician. She was seen again by me this afternoon for post-catheterization followup. She has had no further anginal type symptoms since yesterday. Specifically, none since the coronary intervention today. She denies any dyspnea. No palpitations, lightheadedness, or syncope. No abdominal pain or nausea. No bleeding complaints. She does complain of aching pain in her ventral upper arm just below the elbow. There is slight swelling at this site. This has just developed over the past few hours. Earlier today, when she still had the TR band on her right wrist, she developed swelling on the dorsum of her right lower arm. This had been the site of a prior IV. With pressure this swelling was reduced. She denies any pain at the right radial catheterization site. No pain in her right hand or fingers. Overall, she is feeling very well. MEDICATIONS: Following her procedure today, she was started on atorvastatin 80 mg daily, lisinopril 2.5 mg daily a.m., metoprolol tartrate 25 mg q. 12 hours. She is also on ticagrelor 90 mg b.i.d. and bupropion 150 mg b.i.d. Also, pantoprazole 40 mg daily a.m. She had been loaded with ticagrelor and aspirin yesterday. Prior to her intervention today, she received an additional 90 mg of ticagrelor as well as 81 mg of aspirin. She is now ordered to have 81 mg of aspirin daily. PHYSICAL EXAMINATION: GENERAL: She is lying in bed. No distress. HEAD: Normal. EYES: Pupils equal and round. Anicteric. Conjunctivae normal. NECK: No jugular venous distention. LUNGS: Clear. No rales or wheezes. HEART: Regular rate and rhythm. S1, S2 normal. No S3 or S4. No murmur or rub. ABDOMEN: Soft. Nontender. No palpable masses or organomegaly. EXTREMITIES: At this afternoon, there is mild swelling in the ventral aspect of the right arm just below the elbow. No swelling at right radial catheterization site. No evidence for arterial insufficiency in right hand. Right radial pulse strongly palpable. Brachial pulses strongly palpable. No increased warmth. No erythema of the right arm. NEUROLOGIC: Alert and oriented x3. Motor grossly intact. PSYCHIATRIC: Affect is normal. DATA: Electrocardiogram performed today following PCI to the proximal left circumflex coronary artery was normal. Normal ST segments and T waves. Electrocardiogram reviewed by me. Labs this morning with WBC 11.40, hemoglobin 12.9, hematocrit 38.8, platelet count 332. Metabolic profile this morning with sodium 143, potassium 4.6, chloride 112, carbon dioxide 26, BUN 13, creatinine 1.10, magnesium 2.0. Peak troponin I yesterday evening at 0.057. Cardiac catheterization was performed today via a 6-Bolivian sheath in the right radial artery. It revealed a codominant circulation. 95% proximal left circumflex stenosis. The appearance of thrombus at the stenotic site. [place] 3 flow into the distal and mid left circumflex and its branches. Mild proximal atherosclerotic disease of the LAD. Minimal atherosclerotic disease of the mid LAD. The mid RCA had a 75% stenosis bracketed by 30% stenoses. Normal LV wall motion on LV angiography. ASSESSMENT: 1. Non-ST elevation myocardial infarction. Minimal increase in troponin I following admission. Electrocardiogram had reversible lateral changes suggestive of ischemia. 2. Severe proximal left circumflex stenosis noted on cardiac catheterization. 3. Successful intervention to the proximal left circumflex stenosis. Deployment of a 4 x 18 mm drug-eluting stent. No residual stenosis at the stent site. No coronary complications. [place] 3 flow in the left circumflex and its braches post-percutaneous coronary intervention. No anginal symptoms post-percutaneous coronary intervention. Electrocardiogram without ischemic changes post-percutaneous coronary intervention. 4. Swelling in the ventral aspect of the right upper arm. Cannot exclude vascular injury from passage of the catheters through her radial and brachial arteries. The nursing staff reports that the swelling in her right arm has been stable for the past 3 hours. Minimal discomfort at this site, at this time. 5. No evidence of heart failure on exam. PLAN: 1. Aspirin and ticagrelor. Dual antiplatelet therapy for at least 1 year. May consider switching from ticagrelor to clopidogrel, as an outpatient. She should be on aspirin therapy indefinitely. 2. Will start beta petey and MANDEEP inhibitor therapy. 3. Statin therapy has been started. She has a dyslipidemia. High LDL. 4. Smoking cessation counseling. 5. Discontinue IV fluids. Discontinue topical nitrates. 6. Increase activity. 7. Low dose of intravenous Toradol for the right arm discomfort at this time. 8. Heat therapy to right arm. 9. Increase activity. She has anginal symptoms with exertion, would then consider intervention to the RCA stenosis. If she has no further anginal symptoms then would treat the RCA stenosis medically at this time. MTDD
[2017-02-15] MEDS: METOPROLOL TARTRATE 25 MG TAB PO SCH (19:55)
[2017-02-16] VITALS: O2SAT 99
[2017-02-16 03:57] VITALS: BP 103/68; PULSE 74; TEMP 36.7; O2SAT 98
[2017-02-16 07:24] LABS: BASO % 0.4 %; BASO ABS # 0.04 K/uL (0-0.2); COMPLETE YES; EOS % 2.8 %; HEMATOCRIT 39.9 % (37-47); IG% 0.2 %; LYMPH % 28.6 %; LYMPH ABS # 2.72 K/uL (1.2-3.4); MEAN CELL VOLUME 88.5 fL (80-100); MEAN CORPUSCULAR HEMOGLOBIN 29.9 pg (25-34); MEAN CORPUSCULAR HGB CONC 33.8 g/dl (32-36); MEAN PLATELET VOLUME 9.1 fL (7.4-10.4); MONO % 10.7 %; NEUT % 57.3 %; PLATELET COUNT 340 K/uL (130-400); RED BLOOD COUNT 4.51 M/uL (4.2-5.4); WHITE BLOOD COUNT 9.51 K/uL (4.8-10.8)
[2017-02-16 07:33] VITALS: BP 107/72; PULSE 73; TEMP 36.6; O2SAT 98
[2017-02-16 07:46] LABS: PARTIAL THROMBOPLASTIN RATIO 1.1
[2017-02-16 07:57] LABS: BUN/CREATININE RATIO 13.9 (10-20); CALCIUM 9.3 mg/dl (8.5-10.1); CREATININE 1.1 mg/dl (0.60-1.20); MAGNESIUM 2.3 mg/dl (1.8-2.4); POTASSIUM 4.2 mmol/L (3.5-5.1)
[2017-02-16 08:00] VITALS: O2SAT 98
[2017-02-16] MEDS: BuPROPion SR 150 MG TABCR PO SCH (08:29)
[2017-02-16] MEDS: METOPROLOL TARTRATE 25 MG TAB PO SCH (08:29)
[2017-02-16] MEDS: PANTOprazole SOD 40 MG TAB PO SCH (08:29)
[2017-02-16] MEDS: TICAGRELOR 90 MG TAB PO SCH (08:30)
[2017-02-16] MEDS ORDERED: ATORVASTATIN 40 MG TAB PO SCH (09:00)
[2017-02-16] MEDS ORDERED: ASPIRIN 81 MG ECTAB PO SCH (09:00)
[2017-02-16] MEDS ORDERED: LISINOPRIL 2.5 MG TAB PO SCH (09:00)
--- NOTE | 2017-02-16 09:03 | Cardiology Follow-Up ---
Cardiology Follow-Up Date of Service Feb 16, 2017. Cardiology Follow-Up UBJECTIVE: 61-year-old generally healthy woman with a history of ongoing tobacco use but no prior cardiac history who was admitted for recurring chest discomfort and ruled in for non-STEMI. Catheterization today showed patent LAD, 75 % RCA, 95% circumflex (status post drug-eluting stent placed by Dr. Cotto earlier today) and multiple areas of nonocclusive disease. Of note, the patient had an equivocal dobutamine stress echo last week (negative echo but persistent ST depression on ECG). She was comfortable with no complaints this morning. Right radial access benign. Patient denied chest pain, dyspnea, palpitations, or lightheadedness. PHYSICAL EXAMINATION: No distress. Vitals: Afebrile.BP 107/72, pulse 73 and regular, respirations 16 unlabored. Skin: No unusual lesions or ecchymosis. HEENT: Unremarkable. Neck: Jugular venous pulse at the clavicle at 90, no carotid bruits. Lungs: Moderately decreased breath sounds without wheezing or crackles. No accessory muscle use. Cardiac: Regular rhythm with normal S1 and S2. No murmur or gallop. Abdomen: Benign. Extremities: Right radial access site with clean dry dressing. Minor forearm swelling without ecchymoses. Capillary refill excellent (less than 1 second). No lower extremity edema. Intact peripheral pulses. Neurologic: Normal affect, nonfocal DATA: Normal CBC normal electrolytes, BUN 15, creatinine 1.1 (13 and 1.1 yesterday). ECG showed sinus rhythm was completely unremarkable. IMPRESSION: 1. Coronary artery disease, status post drug-eluting stent of circumflex lesion. 2. Remaining 75% right coronary artery stenosis and multiple nonocclusive stenoses, to be medically managed initially. 3. Non STEMI. 4. Daily tobacco smoker, plans on abstinence. 5. Dyslipidemia. 6. Otherwise healthy 61-year-old woman. DISCUSSION: Patient with crescendo angina and two vessel coronary artery disease, circumflex treated with drug-eluting stent yesterday, right coronary artery will be medically managed initially. Aspirin 81 mg and atorvastatin 80 mg long-term, ticagrelor 90 mg b.i.d. for the next year. Emphasized to the patient the importance of not interrupting dual platelet therapy. Would continue both low-dose MANDEEP-inhibitor (lisinopril 2.5 mg daily) and beta- petey (changed to metoprolol succinate 50 mg daily upon discharge) with outpatient titration if necessary (e.g., increased beta-petey if any exertional angina related to increased heart rate). Enroll in cardiac rehab. Agree with Wellbutrin SR to aid in smoking cessation. Okay for discharge home, prescriptions electronically sent to [facility]. I can see in follow-up in approximately 1 month.
[2017-02-16] MEDS ORDERED: NTRSLP4 SL (10:38)
[2017-02-16] MEDS ORDERED: LPR25 PO (10:38)
[2017-02-16] MEDS ORDERED: BRL90 PO (10:38)
[2017-02-16] MEDS ORDERED: LPT40 PO (10:38)
[2017-02-16] MEDS ORDERED: WLLSR150 PO (10:38)
[2017-02-16] MEDS ORDERED: LSN25 PO (10:38)
--- NOTE | 2017-02-16 10:44 | Discharge Instructions ---
Discharge Instructions Date of Service Feb 16, 2017. Admission Reason for Admission: Chest Pain Radiating To Arm, Unstable Angina Discharge Discharge Diagnosis / Problem: Coronary artery disease Discharge Goals Goal(s): Improve function, Diagnostic testing, Therapeutic intervention Activity Recommendations Activity Limitations: as noted below Do not lift more than 3 pounds with the right arm for 1 week Instructions / Follow-Up Instructions / Follow-Up ACTIVITY RECOMMENDATIONS: Excess manipulation of the wrist should be avoided for the next 24-48 hours. * No lifting over 2 pounds (approximately a 1/2 gallon of milk) with the utilized arm for 24 hours. * No strenuous activity such as bowling or tennis for 3 days. * Keep the site of the procedure covered with a bandage for 24 hours. *You may shower the day after the procedure. Do not take a tub bath or submerge the puncture site in water for the next 3 days. *Do not operate any motorized equipment for 3 days. SPECIAL CARE INSTRUCTIONS: The site may be slightly bruised and sore following your procedure. Should any of the following occur, contact the Dr. who performed your procedure. 1. Redness/inflammation, swelling, chills, or fever, or colored drainage at procedure site within 3-7 days after your procedure. 2. Coldness, discoloration, ongoing numbness, severe pain, or swelling. Expect mild tingling of hand and tenderness at the puncture site for up to three days. If this persists beyond three days, or other symptoms develop, notify the Dr. who performed your procedure. BLEEDING: If the procedure site on your wrist begins to bleed, do not panic 1. Place 1 or 2 fingers firmly just slightly above the insertion site to stop the bleeding. You may be able to feel your pulse as you hold pressure. 2. Lift your finger after 5 minutes to see if the bleeding has stopped. 3. Once the bleeding has stopped, gently wipe the wrist area clean with a bandage. * If the bleeding from your wrist does not stop after 10 minutes, or if there is a large amount of bleeding or spurting, call 911 (do not drive yourself to the hospital). SKIN IRRITATION: * You may experience some redness and/or swelling in the area where radiation was administered. If any skin irritation occurs, please contact your family physician. FOLLOW UP VISIT: Keep any scheduled doctor appointments.You were admitted to the hospital for chest pain. A cardiac catheterization was performed and found significant coronary artery disease. One stent was placed in the left circumflex artery. There was also some narrowing noted in another artery. It is very important to inform your primary care physician and sill worker for any chest pain, pressure , shortness of breath, dizziness or heart palpitations The following changes/additions have been made to your medication list: -Metoprolol succinate 50 mg once daily -Lisinopril 2.5 mg once daily -Atorvastatin 80 mg daily -Brilinta 90 mg twice daily -Bupropion 150 mg twice daily -Please also take one [id number] baby aspirin (81 mg) daily -You also have been provided a prescription for nitroglycerin. Please take immediately for any signs of chest pain or pressure SMOKING CESSATION IS EXTREMELY IMPORTANT Please apply warm compresses 3 times daily to the right arm. Please follow up with your primary care physician within one week of hospitalization Please also follow up with the sill worker as scheduled Call your doctor or return to the emergency department if you have any of the following symptoms: -Fever of 101F or greater -Persistent vomiting - Persistent diarrhea -Lethargy -Chest pain -Shortness of breath -severe dizziness -weakness on one side of your body Current Hospital Diet Patient's current hospital diet: AHA Diet (Heart Healthy) Discharge Diet Recommended Diet: AHA Diet (Heart Healthy) Procedures Procedures Performed: Cardiac catheterization Pending Studies Studies pending at discharge: no Laboratory Results 02/16/17 07:05 Red Blood Count 4.51, Mean Corpuscular Volume 88.5, Mean Corpuscular Hemoglobin 29.9, Mean Corpuscular Hemoglobin Concent 33.8, Mean Platelet Volume 9.1, Neutrophils (%) (Auto) 57.3, Lymphocytes (%) (Auto) 28.6, Monocytes (%) (Auto) 10.7, Eosinophils (%) (Auto) 2.8, Basophils (%) (Auto) 0.4, Neutrophils # (Auto ) 5.44, Lymphocytes # (Auto) 2.72, Monocytes # (Auto) 1.02, Eosinophils # (Auto ) 0.27, Basophils # (Auto) 0.04 02/16/17 07:05 Test 02/16/17 07:05 White Blood Count 9.51 K/uL (4.8-10.8) Red Blood Count 4.51 M/uL (4.2-5.4) Hemoglobin 13.5 g/dL (12.0-16.0) Hematocrit 39.9 % (37-47) Mean Corpuscular Volume 88.5 fL (80-100) Mean Corpuscular Hemoglobin 29.9 pg (25-34) Mean Corpuscular Hemoglobin Concent 33.8 g/dl (32-36) Platelet Count 340 K/uL (130-400) Mean Platelet Volume 9.1 fL (7.4-10.4) Neutrophils (%) (Auto) 57.3 % Lymphocytes (%) (Auto) 28.6 % Monocytes (%) (Auto) 10.7 % Eosinophils (%) (Auto) 2.8 % Basophils (%) (Auto) 0.4 % Neutrophils # (Auto) 5.44 K/uL (1.4-6.5) Lymphocytes # (Auto) 2.72 K/uL (1.2-3.4) Monocytes # (Auto) 1.02 K/uL (0.11-0.59) Eosinophils # (Auto) 0.27 K/uL (0-0.5) Basophils # (Auto) 0.04 K/uL (0-0.2) RDW Standard Deviation 45.2 fL (36.4-46.3) RDW Coefficient of Variation 13.8 % (11.5-14.5) Immature Granulocyte % (Auto) 0.2 % Immature Granulocyte # (Auto) 0.02 K/uL (0.00-0.02) Activated Partial Thromboplast Time 27.5 SECONDS (21.0-31.0) Partial Thromboplastin Ratio 1.1 Anion Gap 5.0 mmol/L (3-11) Est Creatinine Clear Calc Drug Dose 45.0 ml/min Estimated GFR () 61.9 Estimated GFR (Non- 53.4 BUN/Creatinine Ratio 13.9 (10-20) Calcium Level 9.3 mg/dl (8.5-10.1) Magnesium Level 2.3 mg/dl (1.8-2.4) Hemoglobin A1c Test 02/14/17 08:25 Range/Units Estimated Average Glucose 114 mg/dl Hemoglobin A1c 5.6 4.5-5.6 % Medical Emergencies . Who to Call and When: Medical Emergencies: If at any time you feel your situation is an emergency, please call 911 immediately. . Non-Emergent Contact Non-Emergency issues call your: Primary Care Provider, Ditching Machine Operator . . "Provider Documentation" section prepared by Rosalva Caceres. . VTE Core Measure Inpt VTE Proph given/why not?: Unfractionated heparin CODY, Jeffrey. Melany, SCD 's
--- NOTE | 2017-02-16 10:58 | Discharge Summary ---
Discharge Summary Date of Service Feb 16, 2017. (Rosalva Caceres PA-C) Discharge Summary Admission Date: Feb 14, 2017 at 01:45 Discharge Date: Feb 16, 2017 Discharge Disposition: Home Principal Diagnosis: coronary artery disease, unstable angina Procedures: Cardiac catheterization with 1 drug-eluting stent placed in the left circumflex Consultations: Cardiology (Rosalva Caceres PA-C) Medication Reconciliation New Medications: Atorvastatin (Atorvastatin Calcium) 40 Mg Tab 80 MG PO QAM for 30 Days, #30 TAB Bupropion HCl (Bupropion HCl Sr) 150 Mg Tabcr 150 MG PO BID for 30 Days, #60 TAB Lisinopril (Lisinopril) 2.5 Mg Tab 2.5 MG PO QAM for 30 Days, #30 TAB Metoprolol Tartrate (Lopressor) 25 Mg Tab 25 MG PO Q12 for 30 Days, #60 TAB Nitroglycerin (Nitrostat) 0.4 Mg/1 Tab Subl 0.4 MG SL UD PRN for Chest Pain for 30 Days, #60 TAB Ticagrelor (Brilinta) 90 Mg Tab 90 MG PO BID for 30 Days, #60 TAB Continued Medications: Omeprazole (Omeprazole) 20 Mg Tab 1 TAB PO DIRECTED, #45 TAB 3 Refills Take one tab twice daily for a week and then once daily. Referrals At Discharge Follow up Referrals: Physician Referral - Within 2 Weeks with Blake Dexter M.D. Physician Referral - Within 1 Week with Stanton Narayan M.D. Discharge Exam Patient reports feeling well today. Denies any chest pain or pressure. No shortness of breath. Denies any dizziness. No nausea. Very anxious to be discharged home. Review of Systems: Constitutional: No fever Respiratory: No cough, No shortness of breath Cardiovascular: No chest pain Abdomen: No nausea Endocrine: No fatigue Physical Exam: General Appearance: no apparent distress Eyes: EOMI Neck: no JVD Respiratory/Chest: lungs clear Cardiovascular: regular rate, rhythm Abdomen / GI: normal bowel sounds, non tender, soft Extremities: no calf tenderness, no pedal edema Neurologic/Psychiatric: no motor/sensory deficits, oriented x 3 Skin: warm/dry (Rosalva Caceres PA-C) Hospital Course (1) Unstable angina (2) Tobacco abuse counseling (3) Hyperlipemia (4) Advance care planning 61-year-old female with a history of tobacco abuse presenting to the emergency department complaining of intermittent chest pain. Unstable angina/NSTEMI -Admitted to telemetry -Slight elevation in her troponin prompted the patient to be started on a heparin drip -Cardiology consult -Patient underwent cardiac catheterization on 02/15 with one drug-eluting stent placed in the left circumflex artery. There was also disease noted in the right coronary artery. This will be medically managed -Begin ASA 81 mg daily, metoprolol 25 mg po BID (change to Toprol XL 50 mg daily upon d/c), lisinopril 2.5 mg daily, Brilinta 90 mg po BID, atorvastatin 80 mg daily Tobacco abuse -Begin Wellbutrin 150 mg BID -Smoking cessation advised This chart was completed in part utilizing [employer] Speech Voice Recognition software. Attempts were made to minimize the grammatical errors, random word insertions, pronoun errors and incomplete sentences. Any formal questions or concerns about the content, text or information contained within the body of this dictation should be directly addressed to the provider for clarification. Total Time Spent: Greater than 30 minutes This includes examination of the patient, discharge planning, medication reconciliation, and communication with other providers. (Rosalva Caceres PA-C) Discharge Instructions Please refer to the electronic Patient Visit Report (Discharge Instructions) for additional information. (Rosalva Caceres PA-C) Follow-Up PCP within one week Cardiology 1-2 weeks (Rosalva Caceres PA-C) Additional Copies To Stanton Narayan M.D.; Mark Cotto M.D. Reviewed: Pt Seen/Exam by Me (Lacie Barbosa MD) History Physician Syrup Shed Supervisor Supervision Note: I interviewed and examined the patient. Discussed with JENY Caceres and agree with findings and plan as documented in the note. Any exceptions or clarifications are listed here: Patient doing well. She was ambulating around today and has no chest pain. She did have one episode of mild chest pain last evening but none since then. Vitals reviewed No acute distress Regular rate and rhythm no murmurs rubs Clear to auscultation bilaterally, breathing unlabored Extremities no edema 61-year-old female with unstable angina now status post drug-eluting stent to the left circumflex, also with significant disease in the RCA not stented. -Continue aspirin and Brilinta, statin, lisinopril, metoprolol -Todayarge tomorrow and will need follow-up with cardiology as an outpatient -Encouraged tobacco/smoking cessation and will continue bupropion upon discharge for at least 3-6 months Documented By: Lacie Barbosa (Laice Barbosa MD)
[2017-02-16] MEDS ORDERED: METO-452 PO (11:00)
[2017-02-16] MEDS ORDERED: ASPEC81 PO (11:27)
[2017-02-16 11:56] VITALS: BP 107/72; PULSE 73; TEMP 36.6; O2SAT 98
[2017-02-16 12:00] VITALS: O2SAT 98
== END 2017-02-16 12:25 | disposition home or self-care (01) | DRG 246 ==
LOC: ENRESERVDT → ENRESERVTM → C.EDB 23:40 → C.2T 02-14 01:45
PROVIDERS: ADMIT Hospitalist; ATTEND Family Medicine
PROC: 4A023N7 Measurement of Cardiac Sampling and Pressure, Left Heart, Percutaneous Approach (ICD-10-PCS; principal; 2017-02-15 08:26)
PROC: 027034Z Dilation of Coronary Artery, One Artery with Drug-eluting Intraluminal Device, Percutaneous Approach (ICD-10-PCS; principal; 2017-02-15 08:26)
PROC: B2111ZZ Fluoroscopy of Multiple Coronary Arteries using Low Osmolar Contrast (ICD-10-PCS; principal; 2017-02-15 08:26)
PROC: B2151ZZ Fluoroscopy of Left Heart using Low Osmolar Contrast (ICD-10-PCS; principal; 2017-02-15 08:26)
DX: I25.110 Atherosclerotic heart disease of native coronary artery with unstable angina pectoris (principal); I21.4 Non-ST elevation (NSTEMI) myocardial infarction; K21.9 Gastro-esophageal reflux disease without esophagitis; E78.5 Hyperlipidemia, unspecified; F17.210 Nicotine dependence, cigarettes, uncomplicated; Z86.718 Personal history of other venous thrombosis and embolism

== ENCOUNTER 2017-04-08 14:16 | Emergency (ER) | payer BC ==
[~2017-04-08] VITALS: Ht 154.9 cm; Wt 63.2 kg
[~2017-04-08 14:16] MED LIST changes: +ASPEC81 PO; +BRL90 PO; +LPT40 PO; +LSN25 PO; +METO-452 PO; +NTRSLP4 SL; -OMEP20TA PO; +WLLSR150 PO
[2017-04-08 14:21] VITALS: TEMP 36.4; Ht 154.9 cm; Wt 63.2 kg
--- NOTE | 2017-04-08 16:49 | DIAGNOSTIC IMAGING REPORT ---
CHEST ONE VIEW PORTABLE CLINICAL HISTORY: Evaluate Fever/Sepsis dyspnea COMPARISON STUDY: No previous studies for comparison. FINDINGS: The bones soft tissues and hemidiaphragms are normal. The cardiomediastinal silhouette is normal. The lungs are clear. The pulmonary vasculature is normal. IMPRESSION: Negative chest. Electronically signed by: Nader Segal M.D. 04/08/2017 4:48 PM Dictated Date/Time: 04/08/2017 4:48 PM
[2017-04-08 17:04] LABS: BASO % 0.4 %; BASO ABS # 0.05 K/uL (0-0.2); COMPLETE YES; HEMATOCRIT 44.3 % (37-47); IG% 0.3 %; LYMPH ABS # 3.34 K/uL (1.2-3.4); MEAN CELL VOLUME 89.7 fL (80-100); MEAN CORPUSCULAR HEMOGLOBIN 29.8 pg (25-34); MEAN CORPUSCULAR HGB CONC 33.2 g/dl (32-36); MEAN PLATELET VOLUME 8.9 fL (7.4-10.4); MONO % 9.4 %; NEUT % 58.9 %; PLATELET COUNT 458 K/uL (130-400); RED BLOOD COUNT 4.94 M/uL (4.2-5.4); WHITE BLOOD COUNT 12.38 K/uL (4.8-10.8)
[2017-04-08] MEDS ORDERED: ASPI81TA28 PO (17:07)
[2017-04-08] MEDS ORDERED: LPT/40 PO (17:07)
[2017-04-08 17:11] LABS: INR 0.9 (0.9-1.1); PARTIAL THROMBOPLASTIN RATIO 1.1
[2017-04-08] MEDS ORDERED: NTRGSL/4 UT (17:11)
[2017-04-08] MEDS ORDERED: METO25TA3 PO (17:11)
[2017-04-08] MEDS ORDERED: BUPR-79 PO (17:11)
[2017-04-08] MEDS ORDERED: OMEP20TA PO (17:11)
[2017-04-08] MEDS ORDERED: LISI2.5T5 PO (17:11)
[2017-04-08] MEDS ORDERED: TICA1TAB PO (17:11)
[2017-04-08 17:25] LABS: BLOOD UREA NITROGEN 19 mg/dl (7-18); BUN/CREATININE RATIO 19.3 (10-20); CALCIUM 9.4 mg/dl (8.5-10.1); CARBON DIOXIDE 25 mmol/L (21-32); CHLORIDE 108 mmol/L (98-107); GLUCOSE 68 mg/dl (70-99); POTASSIUM 4.1 mmol/L (3.5-5.1); SODIUM 140 mmol/L (136-145)
[2017-04-08 17:29] LABS: CKMB/CK RATIO 0.7 (0-3.0)
--- NOTE | 2017-04-08 17:32 | EMERGENCY ROOM VISIT NOTE ---
History Report prepared by Hilary: Radha Pinto Under the Supervision of: Dr. Cruzito Cortes D.O. First contact with patient: 16:31 Chief Complaint: CHEST PAIN Stated Complaint: CHEST PAIN, REFLUX, NAUSEA History of Present Illness The patient is a 61 year old female who presents to the Emergency Room with complaints of constant chest pain since yesterday evening. Today she developed shortness of breath, heart burn, and nausea. She describes her pain as squeezing and rates it as an 8/10 in severity. The patient had an MO in January and had stents placed at that time. She states that her current symptoms feel like the symptoms she experienced with her previous MO. She called her acid dipper today and was advised to come to the ED for further evaluation. The patient has an appointment with her acid dipper next week. She also reports that since she started her new medications after her MO, she has been more tired and short of breath than usual. Source of History: patient Onset: yesterday evening Position: chest Symptom Intensity: 8/10 Quality: other (squeezing) Timing: constant Associated Symptoms: + SOB, + nausea Review of Systems See HPI for pertinent positives & negatives. A total of 10 systems reviewed and were otherwise negative. Past Medical & Surgical Medical Problems: (1) Advance care planning (2) Blood clot leg (3) Chest pain radiating to arm (4) Hyperlipemia (5) Scarlet fever (6) Tobacco abuse counseling (7) Unstable angina Surgical Problems: (1) H/O ankle fusion Family History FHx: heart disease Social History Smoking Status: Former Smoker Drug Use: none Marital Status: Housing Status: lives with family Occupation Status: employed Current/Historical Medications Scheduled Aspirin (Aspirin Ec), 81 MG PO QPM Atorvastatin (Lipitor), 40 MG PO DAILY Bupropion (Wellbutrin Sr), 150 MG PO DAILY Lisinopril (Lisinopril), 2.5 MG PO DAILY Metoprolol Succ (Toprol Xl) (Toprol-Xl), 25 MG PO DAILY Omeprazole (Omeprazole), 20 MG PO DAILY Ticagrelor (Brilinta), 90 MG PO BID Scheduled PRN Nitroglycerin (Nitrostat), 0.4 MG UT PRN PRN for CHEST PAIN Allergies Coded Allergies: Anesthetics, Amide (Verified Allergy, Unknown, "JONAS" TONGUE SWELLS, ) MORE COMMONLY USED THAN ESTERS Anesthetics, Giuliana (Verified Allergy, Unknown, "JONAS" TONGUE SWELLING, ) Gabapentin (Unverified Allergy, Unknown, DIZZINESS AND VERTIGO, 04/08/17) Penicillins (Verified Allergy, Unknown, UNKNOWN, 04/08/17) Physical Exam Vital Signs Date Time Temp Pulse Resp B/P (MAP) Pulse Ox O2 Delivery O2 Flow Rate FiO2 04/08/17 17:00 88 04/08/17 16:11 97 20 121/84 96 Room Air 04/08/17 14:24 96 Room Air 04/08/17 14:21 36.4 106 18 120/84 100 Room Air Physical Exam CONSTITUTIONAL/VITAL SIGNS: Reviewed / noted above. GENERAL: Non-toxic in appearance. INTEGUMENTARY: Warm, dry, and [place]. HEAD: Normocephalic. EYES: without scleral icterus or trauma. ENT/OROPHARYNX: clear and moist. LYMPHADENOPATHY/NECK: Is supple without lymphadenopathy or meningismus. RESPIRATORY: Lungs clear and equal. CARDIOVASCULAR: Regular rate and rhythm. GI/ABDOMEN: Soft and nontender. No organomegaly or pulsatile mass. No rebound or guarding. Normal bowel sounds. EXTREMITIES: Warm and well perfused. BACK: No CVA tenderness. NEUROLOGICAL: Intact without focal deficits. PSYCHIATRIC: normal affect. MUSCULOSKELETAL: Normally developed with good muscle tone. Medical Decision & Procedures ER Provider Diagnostic Interpretation: Radiology results as stated below per my review and radiologist interpretation: CHEST ONE VIEW PORTABLE CLINICAL HISTORY: Evaluate Fever/Sepsis dyspnea COMPARISON STUDY: No previous studies for comparison. FINDINGS: The bones soft tissues and hemidiaphragms are normal. The cardiomediastinal silhouette is normal. The lungs are clear. The pulmonary vasculature is normal. IMPRESSION: Negative chest. Electronically signed by: Nader Segal M.D. 04/08/2017 4:48 PM Dictated Date/Time: 04/08/2017 4:48 PM Laboratory Results 04/08/17 16:40 Red Blood Count 4.94, Mean Corpuscular Volume 89.7, Mean Corpuscular Hemoglobin 29.8, Mean Corpuscular Hemoglobin Concent 33.2, Mean Platelet Volume 8.9, Neutrophils (%) (Auto) 58.9, Lymphocytes (%) (Auto) 27.0, Monocytes (%) (Auto) 9.4, Eosinophils (%) (Auto) 4.0, Basophils (%) (Auto) 0.4, Neutrophils # (Auto) 7.30, Lymphocytes # (Auto) 3.34, Monocytes # (Auto) 1.16, Eosinophils # (Auto) 0.49, Basophils # (Auto) 0.05 04/08/17 16:40 Test 04/08/17 16:40 04/08/17 16:47 White Blood Count 12.38 K/uL (4.8-10.8) Red Blood Count 4.94 M/uL (4.2-5.4) Hemoglobin 14.7 g/dL (12.0-16.0) Hematocrit 44.3 % (37-47) Mean Corpuscular Volume 89.7 fL (80-100) Mean Corpuscular Hemoglobin 29.8 pg (25-34) Mean Corpuscular Hemoglobin Concent 33.2 g/dl (32-36) Platelet Count 458 K/uL (130-400) Mean Platelet Volume 8.9 fL (7.4-10.4) Neutrophils (%) (Auto) 58.9 % Lymphocytes (%) (Auto) 27.0 % Monocytes (%) (Auto) 9.4 % Eosinophils (%) (Auto) 4.0 % Basophils (%) (Auto) 0.4 % Neutrophils # (Auto) 7.30 K/uL (1.4-6.5) Lymphocytes # (Auto) 3.34 K/uL (1.2-3.4) Monocytes # (Auto) 1.16 K/uL (0.11-0.59) Eosinophils # (Auto) 0.49 K/uL (0-0.5) Basophils # (Auto) 0.05 K/uL (0-0.2) RDW Standard Deviation 46.5 fL (36.4-46.3) RDW Coefficient of Variation 14.3 % (11.5-14.5) Immature Granulocyte % (Auto) 0.3 % Immature Granulocyte # (Auto) 0.04 K/uL (0.00-0.02) Prothrombin Time 10.0 SECONDS (9.0-12.0) Prothromb Time International Ratio 0.9 (0.9-1.1) Activated Partial Thromboplast Time 27.5 SECONDS (21.0-31.0) Partial Thromboplastin Ratio 1.1 Anion Gap 7.0 mmol/L (3-11) Est Creatinine Clear Calc Drug Dose 49.0 ml/min Estimated GFR () 69.4 Estimated GFR (Non- 59.9 BUN/Creatinine Ratio 19.3 (10-20) Calcium Level 9.4 mg/dl (8.5-10.1) Total Creatine Kinase 118 U/L (26-192) Creatine Kinase MB 0.8 ng/ml (0.5-3.6) Creatine Kinase MB Ratio 0.7 (0-3.0) Troponin I < 0.015 ng/ml (0-0.045) Lipase 250 U/L (73-393) Chemistry Specimen Hemolysis Bedside Troponin I < 0.030 ng/ml (0-0.045) Laboratory results as stated above per my review. ECG Indication: chest pain Rate (beats per minute): 109 Rhythm: sinus tachycardia Findings: no acute ischemic change, no ectopy ED Course 1707: Previous medical records were reviewed. The patient was evaluated in room B11B. A complete history and physical examination was performed. At this time I spoke extensively with the patient about her results and treatment plan. I answered all pertaining questions that she had. She expressed understanding and verbalized agreement. I offered the patient admission, but she declined. She will follow-up with her acid dipper next week. The patient will be discharged home. Medical Decision The differential was considered includes acute myocardial infarction, acute coronary syndrome, myocarditis, pericarditis, pericardial effusions/tamponade, esophageal perforation, thoracic aortic dissection, pulmonary embolism, pneumonia, pneumothorax, pancreatitis, shingles, acute cholecystitis, perforated abdominal viscus. Medication Reconciliation: I attest that I have personally reviewed the patient' s current medication list. Patient was found to have a slightly elevated blood pressure due to circumstances. I do not believe that the patient requires hypertension monitoring. This is a 61-year-old female who presents to the ED with a chief complaint of chest squeezing. The patient states that her symptoms started yesterday. She also reported some shortness of breath with exertion. She has been seeing Dr. Dexter for similar symptoms since her cardiac catheterization in January. The patient had a stent placed to the larger of 2 lesions. She states that she continues to have a 75% lesion that is being treated with medication. The patient is not having any symptoms at this moment. She has a twelve-lead EKG that shows a sinus tach at a rate of 109 without ischemic changes. Her cardiac enzymes are normal. CBC and the RPR unremarkable. The patient was told the results. She was offered observation for cardiac reasons but has an appointment with Dr. Dexter on Wednesday. She will follow-up with Dr. Dexter. She is felt to be stable for discharge. Impression Primary Impression: Substernal precordial chest pain Scribe Attestation The scribe's documentation has been prepared under my direction and personally reviewed by me in its entirety. I confirm that the note above accurately reflects all work, treatment, procedures, and medical decision making performed by me. Departure Information Dispostion Home / Self-Care Referrals No Doctor, Assigned (PCP) Patient Instructions My [facility] Additional Instructions Follow-up with Dr. Dexter as scheduled. Return for any worsening or new concerns.
[2017-04-08 17:38] VITALS: BP 118/67; PULSE 82; O2SAT 99
== END 2017-04-08 17:41 | disposition home or self-care (01) ==
LOC: C.EDB 14:17
DX: R07.2 Precordial pain (principal); R06.02 Shortness of breath; R11.0 Nausea; I25.2 Old myocardial infarction; K21.9 Gastro-esophageal reflux disease without esophagitis; Z87.891 Personal history of nicotine dependence

== ENCOUNTER → 2017-04-29 | Outpatient (CLI) | payer BC ==
[~2017-04-29] MED LIST changes: -ASPEC81 PO; +ASPI81TA28 PO; -BRL90 PO; +BUPR-79 PO; +LISI2.5T5 PO; +LPT/40 PO; -LPT40 PO; -LSN25 PO; -METO-452 PO; +METO25TA3 PO; +NTRGSL/4 UT; -NTRSLP4 SL; +OMEP20TA PO; +REGADENOSON 0.4 MG/5 ML SYR ONE; +TICA1TAB PO; -WLLSR150 PO
--- NOTE | 2017-04-29 17:47 | Myocardial Perfusion Study ---
Myocardial Perfusion Study Rpt Myocardial Perfusion Study Rpt Date of Service 04/29/2017 Myocardial Perfusion Study Rpt ONE DAY NUCLEAR MEDICINE LEXISCAN TECHNETIUM 99M MYOCARDIAL PERFUSION SCAN Indication: CAD, Chest tightness. Baseline ECG: Normal sinus rhythm, no ST abnormalities. Ventricular rate 62. Stress ECG: No Lexiscan induced ST changes. No arrhythmias. HR giovanni from 62 to 109 representing 69% MPHR. SBP 103/65 - 125/79 Technique: For the stress portion of the study 31.2 mCi of Technetium 99m Cardiolite IV was injected at 09:10 am on 04/29/2017. 30 minutes following the injection, imaging of the heart was performed in multiple projections. For the rest portion of the study, 11.0 mCi of Technetium 99m Cardiolite was injected IV at 09:30 am. One hour following the injection, imaging of the hear was performed in the same projections. Findings: Rotating raw images were reviewed in detail. Potential sources of attenuation include a lateral breast shadow, and minimal gut uptake impacting the inferior imaging border of the heart. No significant extracardiac pathologic uptake. Short axis, vertical long axis and horizontal long axis images were reviewed in detail. No visual TID. Normal myocardial perfusion on both stress and rest. Normal LV size. EDV 48 ml. Calculated EF 74%. No regional wall motion abnormalities. SUMMARY: 1. Normal myocardial perfusion with no Lexiscan induced ischemia. 2. Normal LV size and function. LVEF 74% with no regional wall motion abnormalities. 3. Non-diagnostic stress ECG due to inability to reach target HR with Lexiscan.
== END | disposition home or self-care (01) ==
LOC: C.NUCL 07:08
PROVIDERS: ATTEND Internal Medicine Cardiovascular Disease
DX: I25.10 Atherosclerotic heart disease of native coronary artery without angina pectoris (principal); R07.89 Other chest pain